=== PATIENT | female | born 1960 ===

== ENCOUNTER 2023-09-25 17:41 | Emergency (ER) | payer BC, SELFPAY ==
[2023-09-25 18:24] VITALS: BP 130/75; PULSE 73; RESP 16; TEMP 36.4; O2SAT 98; BMI 24.8
--- NOTE | 2023-09-25 19:50 | PC.NURSE ---
a&ox3, vss and up to date. pt comes in d/t bilateral eye swelling. sent by urgent care. erythema/swelling noted to bilateral eyes. left side appears worse - travels to outside of left side of nose. partially scabbed pimples noted to left eye/nose. pt denies trauma/any allergic reaction. denies fever/chills/tenderness. slightly warm to touch. pt denies rash on body elsewhere. denies respiratory sx. no sob/wob noted. respirations even and unlabored. family bedside. call perez placed within reach.
[2023-09-25] MEDS: Tetracaine HCl/PF 0.5% Oph Sol 4 ML DROPS 1 DROP EYE-LEFT (20:04)
[2023-09-25] MEDS: Fluorescein Sodium STRIP 1 STRIP EYE-LEFT (20:04)
--- NOTE | 2023-09-25 20:04 | PC.NURSE ---
medication scanned/placed bedside on cart for provider to use.
--- NOTE | 2023-09-25 20:25 | ED.EYEPROB ---
HPI - Eye Problem General Chief complaint: Eye Problems Stated complaint: left eye redened and swollen Time Seen by Provider: 09/25/23 19:52 Source: patient, RN notes reviewed and old records reviewed Mode of arrival: ambulatory History of Present Illness HPI Narrative: 63-year-old female with no significant past medical history presenting to the ED complaining of erythematous, swollen, weeping rash to left eye/left side of face x3-4 days. Reports initially noted lesion to corner of left eye and progressed to left face/nose. Patient was seen in [facility] and sent to the ED for possible zoster ophthalmicus. Patient denies wearing glasses or contacts. Denies vision change/loss, blurry vision/double vision, fever/chills, pain/burning, nausea/vomiting. Admits had chickenpox as a child. Denies new medications/exposures MD chief complaint: eye redness Related Data Previous Rx's Medication Instructions Recorded prednisone 20 mg tablet 40 mg (2 x 20 mg) PO DAILY 4 days 09/25/23 #8 tabs valacyclovir 1 gram tablet 1,000 mg PO TID 7 days #21 tabs 09/25/23 (Valtrex) Allergies Allergy/AdvReac Type Severity Reaction Status Date / Time No Known Allergies Allergy Verified 09/25/23 18:24 Review of Systems Review of Systems: Constitutional: No Fever, No Chills, No Fatigue, No Malaise ENT/Mouth: No Ear Pain, No Nasal Congestion, No sore throat, No Rhinorrhea, No Swallowing Difficulty Eyes: No Eye Pain, + Swelling, + Redness, No Foreign Body, No Discharge, No Vision Changes Cardiovascular: No Chest Pain, No SOB Respiratory: No Cough, No Sputum, No Dyspnea Gastrointestinal: No Nausea, No Vomiting, No Diarrhea, No Constipation, No Abdominal pain Musculoskeletal: No joint pain, No Myalgias, No Joint Swelling Skin: No Skin Lesions, + rash Neuro: No Weakness, No Headache Yes all other systems are reviewed and are negative Constitutional: Constitutional: Reports as per HPI Neurologic: Denies Abnormal speech present PMFSH Past Medical History Attestation statement: The following information was validated with the patient. Source: old records reviewed Social History Smoked in Last 30 Days: No Use of substances other than those prescribed or required for medical reasons: No Advance Directives: No Advance Directives Information Provided: No Patient : No Physical Exam Vital Signs: Vital Signs: Last Vital Signs Temp 97.6 F 09/25/23 18:24 Pulse 73 09/25/23 18:24 Resp 16 09/25/23 18:24 BP 130/75 09/25/23 18:24 Pulse Ox 98 09/25/23 18:24 O2 Del Method Room Air 09/25/23 18:24 BMI result Body Mass Index 24.8 Const: General: cooperative, healthy appearing, no acute distress, alert and awake Orientation/consciousness: patient oriented x3 Limitations: no limitations HEENT: Head: Yes normal to inspection and Yes atraumatic Ears: hearing grossly normal bilaterally General nose exam: Normal external nose present Mouth: Normal oral and palatal mucosa present Throat: Yes posterior oropharynx normal, Yes uvula midline, No peritonsillar mass and No uvular edema Eyes: Other: VA: Right 20/40, Left 20/70, bilateral 20/40 General: appearance normal, both eyes and all related structures Conjunctivae: conjunctival abnormal left conjunctival injection Corneas: fluorescein used (Without uptake. No dendritic lesions. No ulceration or abrasion) Pupils: Equal, round and reactive pupils present EOM: EOMs intact bilaterally and no movement deficit Direct Ophthalmoscopy: no photophobia Neck: Neck: Yes normal visual inspection and Yes no meningeal signs Resp: Effort & Inspection: normal respiratory effort and no respiratory distress Cardio: Rate: regular rate Skin: Other: + erythema/swelling and puffiness noted to left face with crusted over lesion to left lower eyelid and left nasal labial fold. Left nasal labial fold with vesicle/pustule. No ear/TM involvement. manager architecture intact Wounds: no wounds Neuro: General: patient oriented x3, tone normal, moves all extremities, no meningeal signs and CN's II-XI intact bilaterally Cranial nerves: Yes CN's II-XII intact bilaterally and Yes Equal, round and reactive pupils present Cognition (Neuro): normal cognition Speech: No Abnormal speech present Gait exam (Neuro): Normal gait present Extrem: General: Yes normal to inspection Course Course Course Narrative: Results discussed with patient including worrisome signs and symptoms and strict return precautions, and when to return to the emergency department. They verbalized understanding and feel safe for discharge at this time. Medications Administered Discontinued Medications Generic Name Dose Route Start Last Admin Trade Name Usman PRN Reason Stop Dose Admin Fluorescein Sodium 1 strip 09/25/23 19:56 09/25/23 20:04 Fluorescein Sodium Strip EYE-LEFT 09/25/23 19:57 1 strip ONCE ONE Administration Tetracaine HCl 1 drop 09/25/23 19:56 09/25/23 20:04 Tetracaine Hcl/Pf 0.5% Oph Naty 4 Ml Drops EYE-LEFT 09/25/23 19:57 1 drop ONCE ONE Administration Medical Decision Making Medical Decision Making MDM Narrative: 63-year-old female with no significant past medical history presenting to the ED complaining of erythematous, swollen, weeping rash to left eye/left side of face x3-4 days. On exam vital signs stable, NAD, nontoxic appearing, physical exam as noted above with left-sided facial rash with crusting/vesicle/pustule and left lower eyelid involvement. Fluorescein staining without uptake, no dendritic lesions. Concern for zoster ophthalmicus vs ?Contact dermatitis vs impetigo. Lower suspicion for [place] Paulino syndrome. No evidence of anaphylaxis, preseptal/septal cellulitis. Case discussed with ED attending Dr. Louise who also evaluated patient and is in agreement with plan Discussed with patient and daughter at length importance of close ophthalmology follow-up Plan: Viral culture, p.o. Valtrex/prednisone, empirically treat for zoster, Fluorescein staining Please refer to course for remaining clinical decision making, interpretation of labs/imaging results, and discussions with consultants and/or family members. Differential Diagnosis Differential Diagnoses: The differential diagnosis associated with the presentation includes As above Admission/Observation Consideration of admission/observation: Escalation of care including admission/observation considered Lab Data [facility] Lab Attestation statement: I reviewed the patient's lab results. External Record Review External record reviewed: Inpatient record, Office record, Outpatient record, Prior outpatient labs, Prior outpatient radiology, Primary care record and Outside ED record Tests considered The following testing was considered but not selected: As above Prescription Management I considered prescription management with: Antiviral and Antibiotic Discharge Plan Discharge Clinical Impression: Herpes zoster ophthalmicus of left eye Patient Disposition: Home, Self-Care Instructions: Shingles (ED) Additional Instructions: We suspect you may have shingles, shingles involving the eye can be very dangerous and V/Q go blind YOU NEED TO FOLLOW-UP WITH AN CRYPTOGRAPHIC TECHNICIAN, CALL TOMORROW TO MAKE AN APPOINTMENT Valtrex as an antiviral medication, prednisone is steroid, please take as prescribed Recent a viral culture, if results are positive we will contact you If he developed vision loss/change, nausea/vomiting, unremitting pain or fever return to the ED Prescriptions: New valacyclovir [Valtrex] 1 gram tablet 1,000 mg PO TID 7 Days Qty: 21 0RF prednisone 20 mg tablet 40 mg PO DAILY 4 Days Qty: 8 0RF Referrals: Freda Can MD [Physician] - Stephanie Childers OD [Physician] - Brenna Kaplan MD [Physician] - Tanmay Benavides MD [Physician] - Meghan CORTES JR [Physician] - Donald Becker [Physician] - 1 day Stand Alone Forms: Work/School Release
--- NOTE | 2023-09-25 20:28 | PC.NURSE ---
labs obtained and sent to lab by [facility].
--- NOTE | 2023-09-25 20:36 | PC.NURSE ---
visual acuity testing being performed by [facility].
[2023-09-25] MEDS: predniSONE 20 MG TABLET 40 MG PO (20:45)
[2023-09-25] MEDS: valACYclovir HCL 1,000 MG TABLET 1000 MG PO (20:45)
--- NOTE | 2023-09-25 20:47 | PC.NURSE ---
medication administered per provider order. d/c paperwork provided.
== END 2023-09-25 20:47 | disposition home or self-care (01) ==
PROVIDERS: Physician Assistant; Emergency Provider Internal Medicine
DX: B02.8 Zoster with other complications (principal); H57.12 Ocular pain, left eye; R21 Rash and other nonspecific skin eruption
CPT/HCPCS: 36415; 87255; 99283; 99284

== ENCOUNTER 2024-01-09 16:10 | Emergency (ER) | payer BC, SELFPAY ==
[2024-01-09 16:24] VITALS: BP 149/69; PULSE 99; RESP 16; TEMP 37; O2SAT 98; BMI 23.4
--- NOTE | 2024-01-09 16:31 | ED_ITS ---
HPI - General Adult General Chief complaint: Recheck/Abnormal Lab/Rx Stated complaint: abn labs diabetic Time Seen by Provider: 01/09/24 21:06 Source: patient and family Mode of arrival: ambulatory History of Present Illness HPI narrative: 63-year-old female with known history of diabetes and only recently got restarted on medication, she began metformin yesterday and has had 3 doses, she had repeat lab work today and since her blood sugar was very high her primary care doctor sent her into the hospital for closer evaluation. Patient denies any nausea, vomiting, fever, chills, shortness of breath or urinary symptoms. Related Data Previous Rx's Medication Instructions Recorded prednisone 20 mg tablet 40 mg (2 x 20 mg) PO DAILY 4 days 09/25/23 #8 tabs valacyclovir 1 gram tablet 1,000 mg PO TID 7 days #21 tabs 09/25/23 (Valtrex) Allergies Allergy/AdvReac Type Severity Reaction Status Date / Time No Known Allergies Allergy Verified 09/25/23 18:24 Review of Systems 2 Review of Systems: Pertinent positives and negatives as stated in HPI [facility] Past Medical History Source: nursing notes reviewed Social History Social History Advance Directives: No Advance Directives Information Provided: No Physical Exam ED Vital Signs: Vital Signs - 24 hr 01/09/24 16:24 Temperature 98.6 F Pulse Rate 99 Respiratory Rate 16 Blood Pressure 149/69 H Pulse Oximetry 98 Oxygen Delivery Method Room Air BMI result Body Mass Index 23.4 VITAL SIGNS: Reviewed. GENERAL: Well developed, well nourished, in no acute distress. HEAD: Normocephalic/atraumatic EYES: PERRLA, EOMI EARS: Ext canals without abnormality NOSE: Nares patent bilateral OROPHARYNX: no oral lesions noted, posterior pharynx clear NECK: Supple, no adenopathy LUNGS: Normal breath sounds. No adventitious sounds or accessory muscle use. SpO2<98> CARDIOVASCULAR: Regular rate and rhythm without noted murmurs ABDOMEN: Soft, non-tender, non-distended with bowel sounds. MUSCULOSKELETAL: No tenderness, deformities, or effusions noted on gross inspection. EXTREMITIES: No cyanosis, clubbing or edema. SKIN: Inspection of the skin reveals no rashes NEUROLOGIC: Alert and oriented x 4. Strength and sensation to light touch were grossly intact x 4. Course Course Course Narrative: RME: 63-year-old female sent from primary care provider due to hemoglobin A1c over 14. Patient states history of diabetes on metformin. Patient does states increased thirst and urinary frequency. Labs ordered. 18:13; Charge nurse made aware for patient to be brought to the ED due to gucose of 586 Medications Administered Discontinued Medications Generic Name Dose Route Start Last Admin Trade Name Freq PRN Reason Stop Dose Admin Insulin Human Lispro 3 unit 01/09/24 21:29 01/09/24 21:46 Insulin Lispro 100 Unit/Ml 3 Ml Vial SUBCUT 01/09/24 21:30 3 unit ONCE ONE Administration Medical Decision Making Medical Decision Making MDM Narrative: 63-year-old female with history and clinical presentation, DDX: Hyperglycemia and will rule out whether or not associated with any DKA or HHS or underlying illness. I reviewed all investigations and hematologic indices are negative for infectious leukocytosis and suspect reactive as patient has no constitutional symptoms and is otherwise afebrile. Chemistry indices do not demonstrate an KYARA and there is a pseudohyponatremia that is related to patient's random glucose of 586 which on repeat evaluation is noted be 468. Patient will be treated with 3 units subcutaneous lispro as she is considered to be naive at this time and does not have a current glucometer to check her sugar prior to going to bed. Electrolyte without derangements there is no evidence DKA or HHS. Beta hydroxybutyrate-0.26. I discussed all results and findings with the patient at bedside and encouraged her to continue to be compliant with recently prescribed medications and it will take some time and that she will need to use dietary changes as well to further control her sugar levels. Differential Diagnosis Differential Diagnoses: The differential diagnosis associated with the presentation includes Please see the discussion above Admission/Observation Consideration of admission/observation: Escalation of care including admission/observation considered Please see the discussion above Lab Data MDM Lab Attestation statement: I reviewed the patient's lab results. Please see the discussion above 01/09/24 18:13 01/09/24 18:13 Labs: Lab Results 01/09/24 01/09/24 Range/Units 18:13 21:12 WBC 12.0 H (4.8-10.8) X10*3/uL RBC 4.42 (4.20-5.50) X10*6/uL Hgb 13.3 (12.0-16.0) g/dl Hct 38.7 (37.0-47.0) % MCV 87.6 (80.0-98.0) fL MCH 30.1 (27.0-33.0) pg MCHC 34.4 (31.0-35.0) g/dl RDW 11.7 (11.0-16.0) % Plt Count 368 (160-400) X10*3/uL MPV 9.0 L (9.4-12.3) fL Immature Gran % (Auto) 0.3 (0.0-0.4) % Neut % (Auto) 67.5 (45-73) % Lymph % (Auto) 25.8 (20-40) % [place] % (Auto) 5.3 (2-11) % Eos % (Auto) 0.4 (0-4) % Baso % (Auto) 0.7 (0-2) % Lymph # (Auto) 3.1 (1.2-4.9) X10*3/uL [place] # (Auto) 0.6 (0.1-1.2) X10*3/uL Eos # (Auto) 0.1 (0.0-0.4) X10*3/uL Baso # (Auto) 0.1 (0.0-0.2) X10*3/uL Abs Immat Gran (auto) 0.04 H (0.00-0.03) X10*3/uL Absolute Neuts (auto) 8.1 (2.0-8.3) x10*3/uL Absolute Nucleated RBC 0.000 (0.0-0.012) X10*3/uL Nucleated RBC % (auto) 0.0 (0.0-0.2) /100WBC Sodium 133 L (135-145) mmol/L Potassium 4.9 (3.3-5.1) mmol/L Chloride 95 L (96-108) mmol/L Carbon Dioxide 28 (22-29) mmol/L Anion Gap 15 (12-20) BUN 18 H (9-16) mg/dL Creatinine 1.22 (0.5-1.4) mg/dL Estim Creat Clear Calc 39.5 Estimated GFR 45 POC Glucose 468 H* (60-115) mg/dL Random Glucose 586 H* (60-115) mg/dL Calcium 11.1 H (8.4-10.2) mg/dL Total Bilirubin 0.3 (0.0-1.0) mg/dL AST 20 (5-31) U/L ALT 14 (0-31) U/L Alkaline Phosphatase 155 H (39-117) U/L Total Protein 8.1 H (6.5-8.0) g/dL Albumin 3.9 (3.5-5.0) g/dL Beta-Hydroxybutyrate 0.26 (0.02-0.27) mmol/L Chronic Conditions Patient?s care impacted by: Diabetes Discharge Plan Discharge Clinical Impression: Hyperglycemia due to diabetes mellitus, Pseudohyponatremia Patient Disposition: Home, Self-Care Instructions: Basic Carbohydrate Counting (DC), Diabetic Hyperglycemia (ED) Additional Instructions: 1. Resume all home medications as prescribed to include the new ones that you have not yet started. 2. Please review the dietary guidelines to help you further control your sugar levels. 3. Please follow-up with your primary care doctor. Return to the ER for any worsening symptoms. Prescriptions: No Action valacyclovir [Valtrex] 1 gram tablet 1,000 mg PO TID 7 Days Qty: 21 0RF prednisone 20 mg tablet 40 mg PO DAILY 4 Days Qty: 8 0RF Interventions: ED Discharge Assessment Last Done: 01/09/24 21:47 Discharge Date/Time: 01/09/24 21:49
[2024-01-09 18:18] LABS: MANUAL DIFF FLAG NO
[2024-01-09 18:29] LABS: Basophils Absolute Auto 0.1 X10*3/uL (0.0-0.2); Basophils Percent Auto 0.7 % (0-2); Eosinophils Absolute Auto 0.1 X10*3/uL (0.0-0.4); Eosinophils Percent Auto 0.4 % (0-4); Hematocrit 38.7 % (37.0-47.0); Hemoglobin 13.3 g/dl (12.0-16.0); Imm Gran Abs Auto 0.04 X10*3/uL (0.00-0.03); Imm Gran Pct Auto 0.3 % (0.0-0.4); Lymphocytes Absolute Auto 3.1 X10*3/uL (1.2-4.9); Lymphocytes Percent Auto 25.8 % (20-40); Mean Corpuscular HGB Conc 34.4 g/dl (31.0-35.0); Mean Corpuscular Hemoglobin 30.1 pg (27.0-33.0); Mean Corpuscular Volume 87.6 fL (80.0-98.0); Monocytes Absolute Auto 0.6 X10*3/uL (0.1-1.2); Monocytes Percent Auto 5.3 % (2-11); Neutrophils Absolute Auto 8.1 x10*3/uL (2.0-8.3); Neutrophils Percent Auto 67.5 % (45-73); Platelet Count 368 X10*3/uL (160-400); Red Blood Count 4.42 X10*6/uL (4.20-5.50); Red Cell Distribution Width 11.7 % (11.0-16.0)
[2024-01-09 18:45] LABS: Beta-Hydroxybutyrate 0.26 mmol/L (0.02-0.27)
[2024-01-09 18:48] LABS: Alanine Aminotransferase 14 U/L (0-31); Albumin Level 3.9 g/dL (3.5-5.0); Alkaline Phosphatase 155 U/L (39-117); Anion Gap 15 (12-20); Aspartate Amino Transferase 20 U/L (5-31); Bilirubin Total 0.3 mg/dL (0.0-1.0); Blood Urea Nitrogen 18 mg/dL (9-16); Calcium 11.1 mg/dL (8.4-10.2); Carbon Dioxide 28 mmol/L (22-29); Chloride 95 mmol/L (96-108); Creatinine Clr Calc Pharmacy 39.5; Estimated Glomerular Filt Rate 45; Glucose Random 586 mg/dL (60-115); Potassium 4.9 mmol/L (3.3-5.1); Sodium 133 mmol/L (135-145); Total Protein 8.1 g/dL (6.5-8.0)
[2024-01-09 21:17] LABS: Glucose, Whole Blood 468 mg/dL (60-115)
[2024-01-09] MEDS: Insulin Lispro 100 UNIT/ML 3 ML VIAL SUBCUT (21:46)
[2024-01-10 05:24] LABS: Hemoglobin A1c % > 14.0 % (<6.0)
== END 2024-01-09 21:49 | disposition home or self-care (01) ==
PROVIDERS: Physician Assistant; Emergency Provider Student in an Organized Health Care Education/Training Program
DX: E11.65 Type 2 diabetes mellitus with hyperglycemia (principal); Z79.84 Long term (current) use of oral hypoglycemic drugs
CPT/HCPCS: 36415; 80053; 82010; 82947; 83036; 85025; 99282; 99283

== ENCOUNTER 2024-03-25 10:20 | Inpatient (IN) | payer BC, SELFPAY ==
--- NOTE | ~2024-03-25 | CT_ITS ---
EXAMINATION: CT abdomen pelvis w IV con CLINICAL INFORMATION: Right-sided abdominal pain COMPARISON: No prior CT available for comparison. TECHNIQUE: Multidetector volumetric imaging was performed from the superior aspect of the liver through the pubic symphysis 85 mL Omnipaque 350 injected Sagittal and coronal reformatted images were obtained on the technologist's workstation. This CT examination was performed using dose optimization techniques as appropriate, variously including the following: *Automated exposure control *Adjustment of mA and/or kV according to patient size (this includes techniques or standardized protocols for targeted exams where dose is matched to indication/reason for exam; i.e. extremities or head) *Use of iterative reconstruction technique DLP: 385 mGy-cm FINDINGS: LOWER THORAX: Included lung bases are clear. HEPATOBILIARY: No focal hepatic lesions. No biliary ductal dilatation. GALLBLADDER: Gallbladder is markedly distended, there is enhancement and thickening of gallbladder wall and probably gallstones, raising possibility for possible gallbladder disease including cholecystitis and would require correlation with follow-up ultrasound or HIDA scan. SPLEEN: Spleen is normal in size. PANCREAS: No focal mass or ductal dilatation. STOMACH AND GASTROINTESTINAL TRACT: Stomach is grossly unremarkable. There is no bowel distention or thickening. No CT evidence of appendicitis. There is diverticulosis without evidence of diverticulitis. ADRENALS: No adrenal nodules. KIDNEYS/URETERS: There are wedge shape hypodensities in the kidneys bilaterally, at least 2 of which on the right side and 2 on the left, this is concerning for renal small segmental infarcts or scars versus less likely infection with septic emboli.. No kidney stone or hydronephrosis. URINARY BLADDER: Partially decompressed. PELVIC VISCERA: Unremarkable PERITONEUM: No free air or fluid. LYMPH NODES: No lymphadenopathy. VASCULAR:Abdominal aorta normal in size, no aneurysm found. BONES, ABDOMINAL WALL AND SOFT TISSUES: Age-appropriate changes of the spine and skeletal system, no destructive osteolytic or osteosclerotic bone lesion found CT/CT abdomen pelvis w IV con IMPRESSION: 1. Gallbladder is markedly distended, there is enhancement and thickening of gallbladder wall and probably gallstones, raising possibility for possible gallbladder disease including acute cholecystitis. Attention to correlation with follow-up ultrasound or HIDA scan recommended. 2. There are wedge-shaped hypodensities in the kidneys bilaterally at least 2 of which on the right side and 2 on the left, this is concerning for renal segmental infarcts versus scars versus less likely infection or septic emboli. No kidney stone or hydronephrosis. 3. Other noncritical findings as above. (Referring physician staff is being called, by physician staff assistance, to be alerted of the above critical findings and recommendations.) 03/25/2024 3:07 PM WILLIAMS
--- NOTE | 2024-03-25 11:02 | ED_ITS ---
HPI - General Adult General Chief complaint: Abdominal Pain Stated complaint: Abd pain R side Time Seen by Provider: 03/25/24 12:24 Source: patient Mode of arrival: ambulatory Limitations: no limitations History of Present Illness ED Provider: Brandy Cuevas PA-C HPI narrative: Patient is a 64 year old assigned female at with a history of DM and recent colonoscopy presenting to the emergency department today with abdominal pain, nausea, and vomiting. Patient states that she had a colonoscopy on Tuesday03/23/2024, at [facility], and has been having upper abdominal pain, nausea, and vomiting since then. Patient denies any dizziness, lightheadedness, fever, chills, blurry vision, double vision, loss of vision, chest pain, difficulty breathing, shortness of breath, back pain, night sweats, pain with urination, increased urinary frequency, increased urinary urgency, blood in her urine or stool, syncope or a near syncopal episode, recent trauma or falls, bowel incontinence, bladder incontinence, bowel retention, bladder retention, or any other complaints at this time. Onset (ago): day(s) (2) Location: abdomen Severity: mild Severity scale (1-10): 4 Relieving factors: none Exacerbating factors: none Associated symptoms: nausea/vomiting Treatments prior to arrival: none Related Data Previous Rx's ?Medication ?Instructions ?Recorded prednisone 20 mg tablet 40 mg (2 x 20 mg) PO DAILY 4 days 09/25/23 #8 tabs valacyclovir 1 gram tablet 1,000 mg PO TID 7 days #21 tabs 09/25/23 (Valtrex) Allergies Allergy/AdvReac Type Severity Reaction Status Date / Time No Known Allergies Allergy Verified 03/25/24 11:05 Review of Systems 2 Constitutional: Constitutional: Reports no additional constitutional complaints, Denies chills, Denies fever(s) and Denies night sweats Eyes: Eyes: Reports no additional eye complaints, Denies blurry vision, Denies change in vision, Denies diplopia, Denies eye discharge, Denies loss of vision and Denies eye pain ENT: Denies dizziness Cardiovascular: Cardiovascular: Reports no additional cardiovascular complaints, Denies chest pain, Denies lightheadedness, Denies Loss of Consciousness and Denies dyspnea Respiratory: Respiratory: Reports no additional respiratory complaints and Denies dyspnea Gastrointestinal: Gastrointestinal: Reports no additional gastrointestinal complaints, Reports abdominal pain, Denies melena, Denies hematochezia, Denies change in bowel habits, Denies change in stool character, Reports nausea and Reports vomiting Genitourinary: Genitourinary: Denies hematuria, Denies urinary frequency, Denies dysuria, Denies urinary incontinence, Denies urinary hesitancy and Denies urinary urgency Musculoskeletal: Musculoskeletal: Reports no additional musculoskeletal complaints, Denies numbness and Denies tingling Neurologic: Denies dizziness, Denies loss of vision, Denies numbness and Denies tingling Psychiatric: Psychiatric: Reports no additional psychiatric complaints Endocrine: Endocrine: Reports no additional endocrine complaints Hematologic/Lymphatic: Hematologic/Lymphatic: Reports no additional hematologic/lymphatic complaints Allergic/Immunologic: Allergic/Immunologic: Reports no additional allergic/immunologic complaints [facility] Past Medical History Attestation statement: The following information was validated with the patient. Source: old records reviewed and nursing notes reviewed Social History Social History Smoked in Last 30 Days: No Use of substances other than those prescribed or required for medical reasons: No Advance Directives: No Advance Directives Information Provided: Yes Do you have a plan to hurt others: No Plan Physical Exam ED Vital Signs: Vital Signs - 24 hr 03/25/24 11:03 03/25/24 12:54 Temperature 98.1 F 98.6 F Pulse Rate 74 88 Respiratory Rate 16 14 Blood Pressure 125/66 142/67 H Pulse Oximetry 98 95 Oxygen Delivery Method Room Air Room Air BMI result Body Mass Index 23.9 Const General: cooperative, no acute distress, alert and awake Nutritional Appearance: well nourished Orientation/consciousness: patient oriented x3 Limitations: no limitations [facility] Head: Yes normal to inspection and Yes atraumatic Ears: hearing grossly normal bilaterally and external ears normal General nose exam: Normal external nose present, no nasal discharge noted and no epistaxis Face and sinus: Yes normal facial exam, No abrasion and No laceration Mouth: Normal oral and palatal mucosa present, no drooling and no muffled voice Eyes General: appearance normal, both eyes and all related structures Periorbital: periorbital findings normal Eyelids: Yes eyelids normal Conjunctivae: conjunctivae normal Pupils: Equal, round and reactive pupils present EOM: EOMs intact bilaterally Neck Neck: Yes normal visual inspection, Yes full ROM and Yes no lymphadenopathy Chest Chest palpation & inspection: normal inspection of the chest Resp Effort & Inspection: normal respiratory effort and able to speak in complete sentences GI Inspection: Yes normal to inspection Palpation (GI): Soft to palpation, not firm, Tenderness to palpation present (GI), no guarding and not rigid Neuro General: patient oriented x3 and moves all extremities Cranial nerves: Yes Equal, round and reactive pupils present Cognition (Neuro): normal cognition Motor exam (neuro): 5/5 motor strength present throughout Sensory Exam: Normal double simultaneous stimulation for sensation Coordination: [id number] test normal Extrem General: Yes normal to inspection, Yes full ROM and Yes capillary refill normal Psych Appearance: grossly normal Mental Status: mental status grossly normal Affect: normal affect Attitude: cooperative Thought process: Normal thought process present Thought content: Normal thought content present Insight: Good insight present (Psych) Course Course Course Narrative: RME- 64 year old female presents for evaluation of abdominal pain. She reports having a colonoscopy done 2 days ago at [facility]. She reports associated vomiting. Last bowel movement was yesterday. Plan for labs, CT abdomen and pelvis Medications Administered Discontinued Medications Generic Name Dose Route Start Last Admin Trade Name Freq PRN Reason Stop Dose Admin Ceftriaxone Sodium 1 gm/ 50 mls @ 100 mls/hr 03/25/24 12:24 03/25/24 13:00 Sodium Chloride IV 03/25/24 12:53 Infused ONCE ONE Infusion Sodium Chloride 1,000 mls @ 999 mls/hr 03/25/24 12:30 03/25/24 12:52 Ns IV 03/25/24 13:30 999 mls/hr .Q1H1M GULSHAN Administration Iohexol 85 ml 03/25/24 13:48 03/25/24 13:48 Iohexol 350 Mg/Ml 75 Ml Infus..Btl IV 03/25/24 13:49 85 ml ONCE ONE Administration Morphine Sulfate 4 mg 03/25/24 12:28 03/25/24 12:48 Morphine Sulfate 4 Mg/Ml Cartridge IVPUSH 03/25/24 12:29 4 mg ONCE ONE Administration Protocol Ondansetron HCl 4 mg 03/25/24 12:24 03/25/24 12:48 Ondansetron Hcl 4 Mg/2 Ml Vial IVPUSH 03/25/24 12:25 4 mg ONCE ONE Administration Medical Decision Making Medical Decision Making MDM Narrative: Patient is a 64 year old assigned female at with a history of DM presenting to the emergency department today with abdominal pain, nausea, and vomiting. Patient's physical exam showed abdominal pain to palpation but was otherwise unremarkable. Patient's blood work showed an elevated WBC count of 22.5, an elevated glucose of 334, a lactic acid of 2.4, and an ALT of 42. Patient's urine showed a possible infection. Patient's abdomen/pelvis CT showed a markedly distended gallbladder with enhancement and thickening of the gallbladder wall with probable gallstones, consistent with cholecystitis. Incidental finding of wedge-shaped hypodensities in the kidneys bilaterally at least 2 of which are on the right side and 2 on the left concerning for renal segmental infarcts vs. scars. I spoke with Dr. Ornelas, the vascular surgeon international first officer about the potential renal infarcts who recommended outpatient follow up. I spoke to the general surgeon about the cholecystitis who recommended admission under his service. Patient's clinical presentation is not consistent with sepsis (@1600). I explained my physical exam findings as well as all test results to the patient. I answered all questions asked by the patient. Patient verbalized agreement and understanding with this treatment plan and admission. Differential Diagnosis Differential Diagnoses: The differential diagnosis associated with the presentation includes Renal infarct Cholecystitis Abdominal pain UTI Admission/Observation Consideration of admission/observation: Escalation of care including admission/observation considered Patient admitted to the surgical service. Consult Healthcare Provider Management of the patient was discussed with: Finger Lift Operator (spoke to the vascular and surgical teams as noted in the MDM Rationale portion of this note.) Lab Data [facility] Lab Attestation statement: I reviewed the patient's lab results. My interpretation of these results are in the MDM Rationale portion of this note. 03/25/24 11:36 03/25/24 11:36 Labs: Lab Results 03/25/24 03/25/24 03/25/24 Range/Units 11:36 11:40 14:59 WBC 22.5 H (4.8-10.8) X10*3/uL RBC 4.36 (4.20-5.50) X10*6/uL Hgb 13.5 (12.0-16.0) g/dl Hct 39.0 (37.0-47.0) % MCV 89.4 (80.0-98.0) fL MCH 34.6 H (27.0-33.0) pg MCHC 34.6 (31.0-35.0) g/dl RDW 13.3 (11.0-16.0) % Plt Count 244 D (160-400) X10*3/uL MPV 9.2 L (9.4-12.3) fL Immature Gran % (Auto) 0.8 H (0.0-0.4) % Neut % (Auto) 90.3 H (45-73) % Lymph % (Auto) 4.7 L (20-40) % [place] % (Auto) 4.0 (2-11) % Eos % (Auto) 0.0 (0-4) % Baso % (Auto) 0.2 (0-2) % Lymph # (Auto) 1.1 L (1.2-4.9) X10*3/uL [place] # (Auto) 0.9 (0.1-1.2) X10*3/uL Eos # (Auto) 0.0 (0.0-0.4) X10*3/uL Baso # (Auto) 0.1 (0.0-0.2) X10*3/uL Abs Immat Gran (auto) 0.19 H (0.00-0.03) X10*3/uL Absolute Neuts (auto) 20.3 H (2.0-8.3) x10*3/uL Absolute Nucleated RBC 0.000 (0.0-0.012) X10*3/uL Nucleated RBC % (auto) 0.0 (0.0-0.2) /100WBC Smear Tech's Comments VERIFIED PT 14.6 H (11.1-13.3) SEC INR 1.2 H (0.9-1.1) Sodium 143 (135-145) mmol/L Potassium 4.0 (3.3-5.1) mmol/L Chloride 103 (96-108) mmol/L Carbon Dioxide 27 (22-29) mmol/L Anion Gap 17 (12-20) BUN 16 (9-16) mg/dL Creatinine 0.95 (0.5-1.4) mg/dL Estim Creat Clear Calc 50.1 Estimated GFR 59 Random Glucose 334 H (60-115) mg/dL Lactic Acid 2.4 H* (0.5-2.0) mmol/L Lactic Acid F/U @ 2Hr 2.1 H* (0.5-2.0) mmol/L Calcium 10.7 H (8.4-10.2) mg/dL Total Bilirubin 0.6 (0.0-1.0) mg/dL AST 25 (5-31) U/L ALT 42 H (0-31) U/L Alkaline Phosphatase 80 (39-117) U/L Total Protein 8.3 H (6.5-8.0) g/dL Albumin 4.3 (3.5-5.0) g/dL Lipase 6 L (8-78) U/L Urine Color Yellow Urine Appearance Cloudy Urine pH 6.0 (5.0-9.0) Ur Specific [place] >= 1.030 H (1.005-1.025) Urine Protein 100 (2+) H (Neg-Trace) mg/dL Urine Glucose (UA) >=1000 H (Negative) mg/dL Urine Ketones Negative (Negative) mg/dL Urine Blood Trace H (Negative) Urine Nitrite Negative (Negative) Ur Leukocyte Esterase Small (1+) H (Negative) Urine RBC 0-2 (0-2) /HPF Urine WBC >50 H (0-5) /HPF Ur Squamous Epith Cells 6-10 (0-2) /HPF Urine Bacteria 4+ (None Seen) Hyaline Casts 0-2 (0-2) /LPF Independent Interpretation I performed an independent interpretation of an: EKG and CT Scan Interpretation: My interpretation is in agreement with the radiologist's impression of this imaging study. - EXAMINATION: CT abdomen pelvis w IV con CLINICAL INFORMATION: Right-sided abdominal pain COMPARISON: No prior CT available for comparison. TECHNIQUE: Multidetector volumetric imaging was performed from the superior aspect of the liver through the pubic symphysis 85 mL Omnipaque 350 injected Sagittal and coronal reformatted images were obtained on the technologist's workstation. This CT examination was performed using dose optimization techniques as appropriate, variously including the following: *Automated exposure control *Adjustment of mA and/or kV according to patient size (this includes techniques or standardized protocols for targeted exams where dose is matched to indication/reason for exam; i.e. extremities or head) *Use of iterative reconstruction technique DLP: 385 mGy-cm FINDINGS: LOWER THORAX: Included lung bases are clear. HEPATOBILIARY: No focal hepatic lesions. No biliary ductal dilatation. GALLBLADDER: Gallbladder is markedly distended, there is enhancement and thickening of gallbladder wall and probably gallstones, raising possibility for possible gallbladder disease including cholecystitis and would require correlation with follow-up ultrasound or HIDA scan. SPLEEN: Spleen is normal in size. PANCREAS: No focal mass or ductal dilatation. STOMACH AND GASTROINTESTINAL TRACT: Stomach is grossly unremarkable. There is no bowel distention or thickening. No CT evidence of appendicitis. There is diverticulosis without evidence of diverticulitis. ADRENALS: No adrenal nodules. KIDNEYS/URETERS: There are wedge shape hypodensities in the kidneys bilaterally, at least 2 of which on the right side and 2 on the left, this is concerning for renal small segmental infarcts or scars versus less likely infection with septic emboli.. No kidney stone or hydronephrosis. URINARY BLADDER: Partially decompressed. PELVIC VISCERA: Unremarkable PERITONEUM: No free air or fluid. LYMPH NODES: No lymphadenopathy. VASCULAR:Abdominal aorta normal in size, no aneurysm found. BONES, ABDOMINAL WALL AND SOFT TISSUES: Age-appropriate changes of the spine and skeletal system, no destructive osteolytic or osteosclerotic bone lesion found CT/CT abdomen pelvis w IV con IMPRESSION: 1. Gallbladder is markedly distended, there is enhancement and thickening of gallbladder wall and probably gallstones, raising possibility for possible gallbladder disease including acute cholecystitis. Attention to correlation with follow-up ultrasound or HIDA scan recommended. 2. There are wedge-shaped hypodensities in the kidneys bilaterally at least 2 of which on the right side and 2 on the left, this is concerning for renal segmental infarcts versus scars versus less likely infection or septic emboli. No kidney stone or hydronephrosis. 3. Other noncritical findings as above. (Referring physician staff is being called, by physician staff assistance, to be alerted of the above critical findings and recommendations.) 03/25/2024 3:07 PM KP Dictated By: Brenden Bernal MD Signed By: Electronically signed by Brenden Bernal MD 03/25/24 1508 - Vent. Rate: 080 BPM Atrial Rate: 080 BPM P-R Int: 118 ms QRS Dur: 070 ms QT Int: 336 ms P-R-T Axes: 069 022 -07 degrees QTc Int: 387 ms Normal sinus rhythm Nonspecific T wave abnormality Abnormal ECG No previous ECGs available DD/ 1123 Radiology Impression Discussion of test interpretation with radiology: I have reviewed the radiologist's reading. Chronic Conditions Patient?s care impacted by: Diabetes Critical Care Time Critical Care Time Critical Care Time: Yes Total Critical Care Time: 124 Attestation: I spent 124 minutes of Critical Care Time with this patient. This does not include time spent on separately reported billable procedures. Discharge Plan Discharge Clinical Impression: Cholecystitis, UTI (urinary tract infection) Patient Disposition: Admitted As Inpatient
[2024-03-25 11:03] VITALS: BP 125/66; PULSE 74; RESP 16; TEMP 36.7; O2SAT 98; BMI 23.9
--- NOTE | 2024-03-25 11:03 | ECG_ITS ---
Test Reason : PAIN Blood Pressure : / mmHG Vent. Rate : 080 BPM Atrial Rate : 080 BPM P-R Int : 118 ms QRS Dur : 070 ms QT Int : 336 ms P-R-T Axes : 069 022 -07 degrees QTc Int : 387 ms Normal sinus rhythm Inferior T wave inversions- consider ischemia Abnormal ECG No previous ECGs available Referred By: Ayan Gonzalez Electronically Signed By:Krishan Echavarria
[2024-03-25 11:48] LABS: Basophils Absolute Auto 0.1 X10*3/uL (0.0-0.2); Basophils Percent Auto 0.2 % (0-2); Hemoglobin 13.5 g/dl (12.0-16.0); Imm Gran Abs Auto 0.19 X10*3/uL (0.00-0.03); Imm Gran Pct Auto 0.8 % (0.0-0.4); Lymphocytes Absolute Auto 1.1 X10*3/uL (1.2-4.9); Lymphocytes Percent Auto 4.7 % (20-40); MANUAL DIFF FLAG SCAN; Mean Corpuscular HGB Conc 34.6 g/dl (31.0-35.0); Mean Corpuscular Volume 89.4 fL (80.0-98.0); Mean Platelet Volume 9.2 fL (9.4-12.3); Monocytes Absolute Auto 0.9 X10*3/uL (0.1-1.2); Neutrophils Absolute Auto 20.3 x10*3/uL (2.0-8.3); Neutrophils Percent Auto 90.3 % (45-73); Platelet Count 244 X10*3/uL (160-400); Red Blood Count 4.36 X10*6/uL (4.20-5.50); Red Cell Distribution Width 13.3 % (11.0-16.0); SCAN SMEAR FLAG 1; White Blood Count 22.5 X10*3/uL (4.8-10.8)
[2024-03-25 11:49] LABS: Mean Corpuscular Hemoglobin 34.6 pg (27.0-33.0)
[2024-03-25 11:49] LABS: Appearance Urine Cloudy; Color Urine Yellow; Glucose Urine UA >=1000 mg/dL (Negative); Leukocyte Esterase Urine Small (1+) (Negative); Nitrite Urine Negative (Negative); Specific Gravity - Urine >= 1.030 (1.005-1.025); UMIC TRIGGER UACC YES; Urine Blood Trace (Negative); Urine Ketones Negative (Negative); Urine Protein 100 (2+) mg/dL (Neg-Trace)
[2024-03-25 11:52] LABS: Bacteria Urine 4+ (None Seen); Hyaline Casts Urine 0-2 /LPF (0-2); RBC Urine 0-2 /HPF (0-2); UACC Culture Trigger YES; WBC Urine >50 /HPF (0-5)
[2024-03-25 11:59] LABS: INTERNATIONAL NORM RATIO 1.2 (0.9-1.1); Prothrombin Time 14.6 SEC (11.1-13.3)
[2024-03-25 12:04] LABS: Lactic Acid 2.4 mmol/L (0.5-2.0)
[2024-03-25 12:05] LABS: Alanine Aminotransferase 42 U/L (0-31); Albumin Level 4.3 g/dL (3.5-5.0); Alkaline Phosphatase 80 U/L (39-117); Anion Gap 17 (12-20); Aspartate Amino Transferase 25 U/L (5-31); Bilirubin Total 0.6 mg/dL (0.0-1.0); Blood Urea Nitrogen 16 mg/dL (9-16); Calcium 10.7 mg/dL (8.4-10.2); Carbon Dioxide 27 mmol/L (22-29); Chloride 103 mmol/L (96-108); Creatinine Clr Calc Pharmacy 50.1; Estimated Glomerular Filt Rate 59; Glucose Random 334 mg/dL (60-115); Lipase 6 U/L (8-78); Sodium 143 mmol/L (135-145); Total Protein 8.3 g/dL (6.5-8.0)
[2024-03-25 12:08] LABS: SLIDE REVIEW VERIFIED
[2024-03-25] MEDS: Morphine Sulfate 4 MG/ML CARTRIDGE IVPUSH ×2 (12:48→16:01)
[2024-03-25] MEDS: ondansetron HCL 4 MG/2 ML VIAL IVPUSH ×2 (12:48→16:01)
[2024-03-25] MEDS: cefTRIAXone sodium 1 GM in 0.9 % Sodium Chloride 50 ML IV ×2 (12:48→16:02)
[2024-03-25] MEDS: 0.9 % Sodium Chloride 1,000 ML 999 ML IV (12:52)
[2024-03-25 12:54] VITALS: BP 142/67; PULSE 88; RESP 14; TEMP 37; O2SAT 95
[2024-03-25 13:45] LABS: Reflex Lactate? Lactic Acid Added
[2024-03-25] MEDS: iohexoL 350 MG/ML 75 ML INFUS..BTL 85 ML IV (13:48)
[2024-03-25 15:19] LABS: ~Lactic Acid-LAB USE ONLY 2.1 mmol/L (0.5-2.0)
[2024-03-25] MEDS: Dextrose 5 % and 0.9 % NaCl 1,000 ML 100 ML IVCONT (16:17)
[2024-03-25] MEDS: 0.9 % Sodium Chloride Flush 3 ML SYRINGE IVFLUSH (16:23)
[2024-03-25 17:03] LABS: Reflex Lactate? 2 Y
[2024-03-25 17:13] VITALS: BP 128/63; PULSE 75; RESP 18; TEMP 36.6; O2SAT 98
--- NOTE | 2024-03-25 17:24 | PHA.MEDREC ---
Pharmacy Consult ? Medication Reconciliation Pharmacy has completed the medication reconciliation. spoke with patient to confirm medications. She reports she stopped taking melatonin because it was not working for her. She confirmed that she uses 18 units of the lantus every night at 8pm. Patient took no medications today. She reports she took the colonoscopy prep on .
[2024-03-25 17:33] LABS: ~Lactic Acid-LAB USE ONLY 1.9 mmol/L (0.5-2.0)
[2024-03-25] MEDS: HYDROmorphone HCl 1 MG/ML SYRINGE 0.5 MG IVPUSH ×2 (18:49→22:50)
[2024-03-25] MEDS: Acetaminophen 325 MG TABLET 650 MG PO (18:50)
[2024-03-25 18:52] LABS: Glucose, Whole Blood 292 mg/dL (60-115)
--- NOTE | 2024-03-25 19:23 | PC.NURSE ---
POC 292, report called to overflow to RN explaining her case and that I had paused her D5 NS infusion due to sugar being high. The RN will get in touch with Dr Harrison and ask for parameters for this patient.
[2024-03-25] MEDS: Lactated Ringers 1,000 ML 100 ML IVCONT (20:15)
[2024-03-25 23:24] VITALS: BP 149/80; PULSE 92; RESP 14; TEMP 36.8; O2SAT 96
[2024-03-26] VITALS (11 sets, daily range): BP systolic 111–139; BP diastolic 56–67; PULSE 72–95; RESP 14–18; TEMP 36.2–36.8; O2SAT 92–99; BMI 25.0
[2024-03-26 00:16] LABS: Glucose, Whole Blood 279 mg/dL (60-115)
[2024-03-26] MEDS: HYDROmorphone HCl 1 MG/ML SYRINGE 0.5 MG IVPUSH ×2 (02:57→07:40)
[2024-03-26] MEDS: Lactated Ringers 1,000 ML 100 ML IVCONT ×2 (06:28→16:34)
--- NOTE | 2024-03-26 06:34 | P.EN_ITS ---
Event Note Date of Service: 03/26/24 Event Note: This is a 64-year-old female with pertinent history of hypertension, insulin- dependent diabetes mellitus who presents to the emergency department for evaluation of abdominal discomfort. Patient admitted to general surgery for management of acute cholecystitis. Hospital medicine team consulted for management of diabetes mellitus Middle-aged female lying in bed in no distress Neck supple, no JVD Regular rate and rhythm, S1-S2 heard Regular breath sounds bilaterally, no wheezing or crackles appreciated Abdomen with tenderness to palpation, no guarding, no rigidity, no rebound tenderness Patient is awake, alert and oriented to self, place, time and person ; no focal motor deficit Psych: Normal mood No pedal edema #. Insulin-dependent diabetes mellitus with hyperglycemia: Initiating basal plus insulin regimen. #. Acute cholecystitis with sepsis: Resuscitated with IV crystalloids. Lactic acid and blood culture obtained. Initiating empiric IV antibiotics. Plan for lap mila today #. Acute lactic acidosis due to sepsis #. ?Acute UTI: Antibiotics as above #. Hypertension: Hold BLOSSOM inhibitor for possible surgery DVT prophylaxis: Mechanical Diet: NPO Thank you for the consult Time Spent With Patient Time: Total time managing care of this patient today ____ minutes.
[2024-03-26 06:42] LABS: Glucose, Whole Blood 309 mg/dL (60-115)
[2024-03-26] MEDS: Insulin Glargine,Hum.rec.anlog 100 UNIT/ML 10 ML VIAL 9 UNIT SUBCUT ×2 (06:49→20:39)
[2024-03-26] MEDS: Insulin Lispro 100 UNIT/ML 3 ML VIAL SUBCUT ×3 (07:08→20:38)
[2024-03-26] MEDS: Atorvastatin Calcium 40 MG TABLET PO (07:40)
[2024-03-26] MEDS: lisinopriL 2.5 MG TABLET PO (07:40)
[2024-03-26] MEDS: 0.9 % Sodium Chloride Flush 3 ML SYRINGE IVFLUSH ×2 (07:49→20:39)
[2024-03-26] MEDS: Piperacillin Sodium/Tazobactam 4.5 GM in 0.9 % Sodium Chloride 100 ML IV ×3 (07:49→20:39)
[2024-03-26 08:02] LABS: Glucose, Whole Blood 254 mg/dL (60-115)
[2024-03-26 08:17] LABS: Hematocrit 36.9 % (37.0-47.0); Hemoglobin 12.4 g/dl (12.0-16.0); Mean Corpuscular HGB Conc 33.6 g/dl (31.0-35.0); Mean Corpuscular Hemoglobin 30.7 pg (27.0-33.0); Mean Corpuscular Volume 91.3 fL (80.0-98.0); Mean Platelet Volume 9.4 fL (9.4-12.3); Platelet Count 199 X10*3/uL (160-400); Red Blood Count 4.04 X10*6/uL (4.20-5.50); Red Cell Distribution Width 13.7 % (11.0-16.0); White Blood Count 18.4 X10*3/uL (4.8-10.8)
[2024-03-26 08:33] LABS: Anion Gap 14 (12-20); Blood Urea Nitrogen 15 mg/dL (9-16); Calcium 9.9 mg/dL (8.4-10.2); Carbon Dioxide 26 mmol/L (22-29); Chloride 107 mmol/L (96-108); Creatinine Clr Calc Pharmacy 69.1; Estimated Glomerular Filt Rate > 60; Glucose Random 287 mg/dL (60-115); Potassium 3.7 mmol/L (3.3-5.1); Sodium 143 mmol/L (135-145)
--- NOTE | 2024-03-26 09:10 | P.HPGS_ITS ---
History of Present Illness History of Present Illness Date of Service: 03/26/24 Chief complaint: Acute GB Narrative: Kiarra Aldana is a 64 year old female here in the ER yesterday afternoon by Dr. Harrison because of abdominal pain. She describes this mostly in the right upper side of the abdomen radiating to the back. She states that she had a colonoscopy last Tuesday morning in the hospital. She says she did well afterwards but later that night, she started to have this right upper quadrant pain. This persisted on Tuesday and she eventually came to the ER yesterday. She also describes some nausea and vomiting. She denies any diarrhea She says that currently, her pain is in right upper quadrant all the way to the side and back. Her CT scan yesterday showed findings suggestive of acute cholecystitis with a distended gallbladder and thickened wall. Her initial lactate was 2.4 but this went down to normal after hydration. Review of Systems Constitutional: Constitutional: Denies chills and Denies fever(s) Cardiovascular: Cardiovascular: Denies chest pain, Denies dyspnea and Denies dyspnea on exertion Respiratory: Respiratory: Denies cough, Denies dyspnea and Denies dyspnea on exertion Gastrointestinal: Gastrointestinal: Denies hematochezia and Denies change in bowel habits Genitourinary: Genitourinary: Denies hematuria Musculoskeletal: Musculoskeletal: Denies back pain and Denies limited range of motion Neurologic: Denies focal weakness and Denies convulsions Psychiatric: Psychiatric: Denies depression and Denies mood swings PMFSH Past Medical History Medical History Hypertension Diabetes mellitus Social History Social History Household Members: Spouse Housing: House Do you presently have visiting nurse or other home services: No Comment: COUNTS CORRECT Patient Tobacco Use Status: Never used Tobacco Smoked in Last 30 Days: No Use of substances other than those prescribed or required for medical reasons: No Currently Displaying Signs/Symptoms of Drug Intoxication Withdrawal: No Have you been hit, kicked, punched, or otherwise hurt by someone within the past year? If so, by whom?: No Do you feel safe in your current relationship?: Yes Is there a partner from a previous relationship who is making you feel unsafe now?: No Are you made to feel afraid or neglected: No Advance Directives: No Advance Directives Information Provided: Yes Do you have a plan to hurt others: No Plan Recently lost weight without trying: Yes Eating poorly because of decreased appetite: No Nutrition Risks: No Nutritional Risk Patient : No : No Poor oral hygiene: No Meds Allergies Allergy/AdvReac Type Severity Reaction Status Date / Time No Known Allergies Allergy Verified 03/25/24 11:05 Active Medications: Current Medications Acetaminophen (Acetaminophen 325 Mg Tablet) 650 mg PO Q6H PRN PRN Reason: Pain, Mild (Pain Scale 1-3) Last Admin: 03/25/24 18:50 Dose: 650 mg Al Hydroxide/Mg Hydroxide (Magnesium Hydrox/Alum Hydrox 30 Ml Oral.Susp) 30 ml PO Q4H PRN PRN Reason: Heartburn/Nausea Atorvastatin Calcium (Atorvastatin Calcium 40 Mg Tablet) 40 mg PO DAILY [facility] Last Admin: 03/26/24 07:40 Dose: 40 mg Glucose (Glucose Gel 15 Gm Gel..Gram.) 15 gm PO Q15M PRN; Protocol PRN Reason: per Hypoglycemia Standing Ord. Hydromorphone HCl (Hydromorphone Hcl 1 Mg/Ml Syringe) 0.5 mg IVPUSH Q4H PRN; Protocol PRN Reason: Pain, Severe (Pain Scale 7-10) Last Admin: 03/26/24 07:40 Dose: 0.5 mg Lactated Ringer's (Lr) 1,000 mls @ 100 mls/hr IVCONT .Q10H [facility] Last Admin: 03/26/24 06:28 Dose: 100 mls/hr Dextrose (D10) 250 mls @ 750 mls/hr IV Q15M PRN; Protocol PRN Reason: per Hypoglycemia Standing Ord. Piperacillin Sod/Tazobactam (Sod 4.5 gm/ Sodium Chloride) 100 mls @ 200 mls/hr IV Q6H [facility] Last Infusion: 03/26/24 08:19 Dose: Infused Insulin Glargine (Insulin Glargine,Hum.Rec.Anlog 100 Unit/Ml 10 Ml Vial) 9 unit SUBCUT BEDTIME [facility] Insulin Human Lispro (Insulin Lispro 100 Unit/Ml 3 Ml Vial) 0 unit SUBCUT QIDACHS [facility]; Protocol Last Admin: 03/26/24 07:08 Dose: 8 unit Lisinopril (Lisinopril 2.5 Mg Tablet) 2.5 mg PO DAILY [facility]; Protocol Last Admin: 03/26/24 07:40 Dose: 2.5 mg Magnesium Hydroxide (Milk Of Magnesia 30 Ml Oral.Susp) 30 ml PO DAILY PRN PRN Reason: Constipation Sodium Chloride (0.9 % Sodium Chloride Flush 3 Ml Syringe) 3 ml IVFLUSH QSHIFT [facility] Last Admin: 03/26/24 07:49 Dose: 3 ml Temazepam (Temazepam 15 Mg Capsule) 15 mg PO BEDTIME PRN PRN Reason: Insomnia Home Medications ?Medication ?Instructions ?Recorded ?Confirmed ?Last Taken ?Type atorvastatin 40 mg tablet 40 mg PO DAILY 03/25/24 03/25/24 Unknown History insulin glargine 100 unit/mL (3 18 unit subcut DAILY@199903/25/24 03/25/24 Unkn own History mL) subcutaneous pen (Lantus Solostar U-100 Insulin) lisinopril 2.5 mg tablet 2.5 mg PO DAILY 03/25/24 03/25/24 Unknown History metformin 1,000 mg tablet 1,000 mg PO BID 03/25/24 03/25/24 Unknown History Physical Exam Vital Signs: Vital Signs: Last Vital Signs Temp 97.7 F 03/26/24 07:06 Pulse 92 03/26/24 07:06 Resp 17 03/26/24 07:06 BP 138/62 03/26/24 07:06 Pulse Ox 94 03/26/24 07:06 O2 Del Method Room Air 03/26/24 07:06 BMI result Body Mass Index 25.0 Const: Other: looks uncomfortable, says she is in pain General: No comfortable Orientation/consciousness: patient oriented x3 Neck: Neck: Yes no lymphadenopathy Resp: Auscultation: clear to auscultation bilaterally Cardio: Rhythm: regular rhythm GI: Other: Significantly tender on the right upper quadrant Palpation (GI): Soft to palpation, Tenderness to palpation present (GI) and no guarding Neuro: General: patient oriented x3 Results Results Labs: Short CBC 03/25/24 03/26/24 Range/Units 11:36 08:01 WBC 22.5 H 18.4 H (4.8-10.8) X10*3/uL Hgb 13.5 12.4 (12.0-16.0) g/dl Hct 39.0 36.9 L (37.0-47.0) % Plt Count 244 D 199 (160-400) X10*3/uL BMP 03/25/24 03/26/24 11:36 08:01 Sodium 143 143 Potassium 4.0 3.7 Chloride 103 107 Carbon Dioxide 27 26 BUN 16 15 Creatinine 0.95 0.75 Calcium 10.7 H 9.9 D Liver Function 03/25/24 Range/Units 11:36 Total Bilirubin 0.6 (0.0-1.0) mg/dL AST 25 (5-31) U/L ALT 42 H (0-31) U/L Alkaline Phosphatase 80 (39-117) U/L Albumin 4.3 (3.5-5.0) g/dL Urine 03/25/24 Range/Units 11:40 Urine Color Yellow Urine Appearance Cloudy Urine pH 6.0 (5.0-9.0) Ur Specific [place] >= 1.030 H (1.005-1.025) Urine Protein 100 (2+) H (Neg-Trace) mg/dL Urine Glucose (UA) >=1000 H (Negative) mg/dL Abdomen CT scan report/results: report reviewed and image reviewed CT scan - pelvis: report reviewed and image reviewed Additional studies: Laboratory Results WBC 18.4 X10*3/uL (4.8-10.8) H 03/26/24 08:01 RBC 4.04 X10*6/uL (4.20-5.50) L 03/26/24 08:01 Hgb 12.4 g/dl (12.0-16.0) 03/26/24 08:01 Hct 36.9 % (37.0-47.0) L 03/26/24 08:01 MCV 91.3 fL (80.0-98.0) 03/26/24 08:01 MCH 30.7 pg (27.0-33.0) 03/26/24 08:01 MCHC 33.6 g/dl (31.0-35.0) 03/26/24 08:01 RDW 13.7 % (11.0-16.0) 03/26/24 08:01 Plt Count 199 X10*3/uL (160-400) 03/26/24 08:01 MPV 9.4 fL (9.4-12.3) 03/26/24 08:01 Immature Gran % (Auto) 0.8 % (0.0-0.4) H 03/25/24 11:36 Neut % (Auto) 90.3 % (45-73) H 03/25/24 11:36 Lymph % (Auto) 4.7 % (20-40) L 03/25/24 11:36 [place] % (Auto) 4.0 % (2-11) 03/25/24 11:36 Eos % (Auto) 0.0 % (0-4) 03/25/24 11:36 Baso % (Auto) 0.2 % (0-2) 03/25/24 11:36 Lymph # (Auto) 1.1 X10*3/uL (1.2-4.9) L 03/25/24 11:36 [place] # (Auto) 0.9 X10*3/uL (0.1-1.2) 03/25/24 11:36 Eos # (Auto) 0.0 X10*3/uL (0.0-0.4) 03/25/24 11:36 Baso # (Auto) 0.1 X10*3/uL (0.0-0.2) 03/25/24 11:36 Abs Immat Gran (auto) 0.19 X10*3/uL (0.00-0.03) H 03/25/24 11:36 Absolute Neuts (auto) 20.3 x10*3/uL (2.0-8.3) H 03/25/24 11:36 Absolute Nucleated RBC 0.000 X10*3/uL (0.0-0.012) 03/26/24 08:01 Nucleated RBC % (auto) 0.0 /100WBC (0.0-0.2) 03/26/24 08:01 Smear Tech's Comments VERIFIED 03/25/24 11:36 PT 14.6 SEC (11.1-13.3) H 03/25/24 11:36 INR 1.2 (0.9-1.1) H 03/25/24 11:36 Sodium 143 mmol/L (135-145) 03/26/24 08:01 Potassium 3.7 mmol/L (3.3-5.1) 03/26/24 08:01 Chloride 107 mmol/L (96-108) 03/26/24 08:01 Carbon Dioxide 26 mmol/L (22-29) 03/26/24 08:01 Anion Gap 14 (12-20) 03/26/24 08:01 BUN 15 mg/dL (9-16) 03/26/24 08:01 Creatinine 0.75 mg/dL (0.5-1.4) 03/26/24 08:01 Estim Creat Clear Calc 69.1 03/26/24 08:01 Estimated GFR > 60 03/26/24 08:01 POC Glucose 254 mg/dL (60-115) H 03/26/24 07:58 Random Glucose 287 mg/dL (60-115) H 03/26/24 08:01 Lactic Acid 2.4 mmol/L (0.5-2.0) H* 03/25/24 11:36 Lactic Acid F/U @ 2Hr 2.1 mmol/L (0.5-2.0) H* 03/25/24 14:59 Lactic Acid F/U @ 4Hr 1.9 mmol/L (0.5-2.0) 03/25/24 17:16 Calcium 9.9 mg/dL (8.4-10.2) D 03/26/24 08:01 Total Bilirubin 0.6 mg/dL (0.0-1.0) 03/25/24 11:36 AST 25 U/L (5-31) 03/25/24 11:36 ALT 42 U/L (0-31) H 03/25/24 11:36 Alkaline Phosphatase 80 U/L (39-117) 03/25/24 11:36 Total Protein 8.3 g/dL (6.5-8.0) H 03/25/24 11:36 Albumin 4.3 g/dL (3.5-5.0) 03/25/24 11:36 Lipase 6 U/L (8-78) L 03/25/24 11:36 Urine Color Yellow 03/25/24 11:40 Urine Appearance Cloudy 03/25/24 11:40 Urine pH 6.0 (5.0-9.0) 03/25/24 11:40 Ur Specific [place] >= 1.030 (1.005-1.025) H 03/25/24 11:40 Urine Protein 100 (2+) mg/dL (Neg-Trace) H 03/25/24 11:40 Urine Glucose (UA) >=1000 mg/dL (Negative) H 03/25/24 11:40 Urine Ketones Negative mg/dL (Negative) 03/25/24 11:40 Urine Blood Trace (Negative) H 03/25/24 11:40 Urine Nitrite Negative (Negative) 03/25/24 11:40 Ur Leukocyte Esterase Small (1+) (Negative) H 03/25/24 11:40 Urine RBC 0-2 /HPF (0-2) 03/25/24 11:40 Urine WBC >50 /HPF (0-5) H 03/25/24 11:40 Ur Squamous Epith Cells 6-10 /HPF (0-2) 03/25/24 11:40 Urine Bacteria 4+ (None Seen) 03/25/24 11:40 Hyaline Casts 0-2 /LPF (0-2) 03/25/24 11:40 Impressions Abdomen/Pelvis CT 03/25/24 13:57 IMPRESSION: 1. Gallbladder is markedly distended, there is enhancement and thickening of gallbladder wall and probably gallstones, raising possibility for possible gallbladder disease including acute cholecystitis. Attention to correlation with follow-up ultrasound or HIDA scan recommended. 2. There are wedge-shaped hypodensities in the kidneys bilaterally at least 2 of which on the right side and 2 on the left, this is concerning for renal segmental infarcts versus scars versus less likely infection or septic emboli. No kidney stone or hydronephrosis. 3. Other noncritical findings as above. (Referring physician staff is being called, by physician staff assistance, to be alerted of the above critical findings and recommendations.) 03/25/2024 3:07 PM Assessment and Plan (1) Cholecystitis: Status: Acute 64-year-old female a right upper quadrant pain radiating to the flank and back, with CT scan findings consistent with acute cholecystitis. She is still very tender on exam and says she has significant pain. I therefore told her it may be best to proceed with cholecystectomy today. I had a long discussion with her about the technique of laparoscopic cholecystectomy and possible open cholecystectomy. I reviewed with her the risks including but not limited to bleeding, infections, injury to other organs including bowel, liver, bile duct, retained stones, bile leak, as well as the benefits and alternatives. She understands and wants to proceed Her daughter Danay was involved with the discussion. Her LFTs are normal. Imaging does show severe inflammatory changes of the gallbladder. Difficult dissection is anticipated. Quality Stroke Does the patient have a stroke diagnosis?: No VTE Prior VTE?: No VTE Risk Level:: Surgical - low VTE Device Contraindication: Treatment Not Indicated VTE Drug Contraindication: Treatment Not Indicated Procedures Date of Service Date of Service: 03/26/24
[2024-03-26] MEDS: HYDROmorphone HCl 0.5 MG/0.5 ML SYRINGE IVPUSH (10:35)
[2024-03-26 11:24] LABS: Glucose, Whole Blood 223 mg/dL (60-115)
--- NOTE | 2024-03-26 11:51 | P.CONAN_ITS ---
HPI - Anesthesia Eval Consult details Narrative: 64 yo F admitted with acute cholecystitis PMFSH Active Problems Active Problems: All Active Problems Hypertension (Acute) Diabetes mellitus (Acute) UTI (urinary tract infection) (Acute) Cholecystitis (Acute) Past Medical History Medical History Hypertension Diabetes mellitus Family History Family history of problems with anesthesia: No Surgical History History of Problems with Anesthesia: No Social History Social History Household Members: Spouse Housing: House Do you presently have visiting nurse or other home services: No Patient Tobacco Use Status: Never used Tobacco Smoked in Last 30 Days: No Use of substances other than those prescribed or required for medical reasons: No Currently Displaying Signs/Symptoms of Drug Intoxication Withdrawal: No Have you been hit, kicked, punched, or otherwise hurt by someone within the past year? If so, by whom?: No Do you feel safe in your current relationship?: Yes Is there a partner from a previous relationship who is making you feel unsafe now?: No Are you made to feel afraid or neglected: No Advance Directives: No Advance Directives Information Provided: Yes Do you have a plan to hurt others: No Plan Recently lost weight without trying: Yes Eating poorly because of decreased appetite: No Nutrition Risks: No Nutritional Risk Patient : No : No Poor oral hygiene: No Meds Allergies Allergy/AdvReac Type Severity Reaction Status Date / Time No Known Allergies Allergy Verified 03/25/24 11:05 Active Medications: Current Medications Acetaminophen (Acetaminophen 325 Mg Tablet) 650 mg PO Q6H PRN PRN Reason: Pain, Mild (Pain Scale 1-3) Last Admin: 03/25/24 18:50 Dose: 650 mg Al Hydroxide/Mg Hydroxide (Magnesium Hydrox/Alum Hydrox 30 Ml Oral.Susp) 30 ml PO Q4H PRN PRN Reason: Heartburn/Nausea Atorvastatin Calcium (Atorvastatin Calcium 40 Mg Tablet) 40 mg PO DAILY [facility] Last Admin: 03/26/24 07:40 Dose: 40 mg Glucose (Glucose Gel 15 Gm Gel..Gram.) 15 gm PO Q15M PRN; Protocol PRN Reason: per Hypoglycemia Standing Ord. Hydromorphone HCl (Hydromorphone Hcl 1 Mg/Ml Syringe) 0.5 mg IVPUSH Q4H PRN; Protocol PRN Reason: Pain, Severe (Pain Scale 7-10) Last Admin: 03/26/24 07:40 Dose: 0.5 mg Lactated Ringer's (Lr) 1,000 mls @ 100 mls/hr IVCONT .Q10H [facility] Last Admin: 03/26/24 06:28 Dose: 100 mls/hr Dextrose (D10) 250 mls @ 750 mls/hr IV Q15M PRN; Protocol PRN Reason: per Hypoglycemia Standing Ord. Piperacillin Sod/Tazobactam (Sod 4.5 gm/ Sodium Chloride) 100 mls @ 200 mls/hr IV Q6H [facility] Last Infusion: 03/26/24 08:19 Dose: Infused Insulin Glargine (Insulin Glargine,Hum.Rec.Anlog 100 Unit/Ml 10 Ml Vial) 9 unit SUBCUT BEDTIME [facility] Insulin Human Lispro (Insulin Lispro 100 Unit/Ml 3 Ml Vial) 0 unit SUBCUT QIDACHS [facility]; Protocol Last Admin: 03/26/24 11:38 Dose: Not Given Lisinopril (Lisinopril 2.5 Mg Tablet) 2.5 mg PO DAILY [facility]; Protocol Last Admin: 03/26/24 07:40 Dose: 2.5 mg Magnesium Hydroxide (Milk Of Magnesia 30 Ml Oral.Susp) 30 ml PO DAILY PRN PRN Reason: Constipation Sodium Chloride (0.9 % Sodium Chloride Flush 3 Ml Syringe) 3 ml IVFLUSH QSHIFT [facility] Last Admin: 03/26/24 07:49 Dose: 3 ml Temazepam (Temazepam 15 Mg Capsule) 15 mg PO BEDTIME PRN PRN Reason: Insomnia Home Medications ?Medication ?Instructions ?Recorded ?Confirmed ?Last Taken ?Type atorvastatin 40 mg tablet 40 mg PO DAILY 03/25/24 03/25/24 Unknown History insulin glargine 100 unit/mL (3 18 unit subcut DAILY@199903/25/24 03/25/24 Unknown History mL) subcutaneous pen (Lantus Solostar U-100 Insulin) lisinopril 2.5 mg tablet 2.5 mg PO DAILY 03/25/24 03/25/24 Unknown History metformin 1,000 mg tablet 1,000 mg PO BID 03/25/24 03/25/24 Unknown History Exam Exam Date and Time: March 23, 2024 1151 Height,Weight and Vital Signs: Height 5 ft 3 in Weight 64 kg Last Vital Signs Temp 97.7 F 03/26/24 07:06 Pulse 92 03/26/24 07:06 Resp 17 03/26/24 07:06 BP 138/62 03/26/24 07:06 Pulse Ox 94 03/26/24 07:06 O2 Del Method Room Air 03/26/24 07:06 Pertinent Lab Results Pertinent Lab Results: Laboratory Tests 03/25/24 03/25/24 03/25/24 11:36 11:40 14:59 WBC 22.5 H RBC 4.36 Hgb 13.5 Hct 39.0 MCV 89.4 MCH 34.6 H MCHC 34.6 RDW 13.3 Plt Count 244 D MPV 9.2 L Immature Gran % (Auto) 0.8 H Neut % (Auto) 90.3 H Lymph % (Auto) 4.7 L [place] % (Auto) 4.0 Eos % (Auto) 0.0 Baso % (Auto) 0.2 Lymph # (Auto) 1.1 L [place] # (Auto) 0.9 Eos # (Auto) 0.0 Baso # (Auto) 0.1 Abs Immat Gran (auto) 0.19 H Absolute Neuts (auto) 20.3 H Absolute Nucleated RBC 0.000 Nucleated RBC % (auto) 0.0 Smear Tech's Comments VERIFIED PT 14.6 H INR 1.2 H Sodium 143 Potassium 4.0 Chloride 103 Carbon Dioxide 27 Anion Gap 17 BUN 16 Creatinine 0.95 Estim Creat Clear Calc 50.1 Estimated GFR 59 POC Glucose Random Glucose 334 H Lactic Acid 2.4 H* Lactic Acid F/U @ 2Hr 2.1 H* Lactic Acid F/U @ 4Hr Calcium 10.7 H Total Bilirubin 0.6 AST 25 ALT 42 H Alkaline Phosphatase 80 Total Protein 8.3 H Albumin 4.3 Lipase 6 L Urine Color Yellow Urine Appearance Cloudy Urine pH 6.0 Ur Specific [place] >= 1.030 H Urine Protein 100 (2+) H Urine Glucose (UA) >=1000 H Urine Ketones Negative Urine Blood Trace H Urine Nitrite Negative Ur Leukocyte Esterase Small (1+) H Urine RBC 0-2 Urine WBC >50 H Ur Squamous Epith Cells 6-10 Urine Bacteria 4+ Hyaline Casts 0-2 Blood Type Antibody Screen 03/25/24 03/25/2403/26/24 17:16 18:47 00:12 WBC RBC Hgb Hct MCV MCH MCHC RDW Plt Count MPV Immature Gran % (Auto) Neut % (Auto) Lymph % (Auto) [place] % (Auto) Eos % (Auto) Baso % (Auto) Lymph # (Auto) [place] # (Auto) Eos # (Auto) Baso # (Auto) Abs Immat Gran (auto) Absolute Neuts (auto) Absolute Nucleated RBC Nucleated RBC % (auto) Smear Tech's Comments PT INR Sodium Potassium Chloride Carbon Dioxide Anion Gap BUN Creatinine Estim Creat Clear Calc Estimated GFR POC Glucose 292 H 279 H Random Glucose Lactic Acid Lactic Acid F/U @ 2Hr Lactic Acid F/U @ 4Hr 1.9 Calcium Total Bilirubin AST ALT Alkaline Phosphatase Total Protein Albumin Lipase Urine Color Urine Appearance Urine pH Ur Specific [place] Urine Protein Urine Glucose (UA) Urine Ketones Urine Blood Urine Nitrite Ur Leukocyte Esterase Urine RBC Urine WBC Ur Squamous Epith Cells Urine Bacteria Hyaline Casts Blood Type Antibody Screen 03/26/24 03/26/24 03/26/24 06:39 07:58 08:01 WBC 18.4 H RBC 4.04 L Hgb 12.4 Hct 36.9 L MCV 91.3 MCH 30.7 MCHC 33.6 RDW 13.7 Plt Count 199 MPV 9.4 Immature Gran % (Auto) Neut % (Auto) Lymph % (Auto) [place] % (Auto) Eos % (Auto) Baso % (Auto) Lymph # (Auto) [place] # (Auto) Eos # (Auto) Baso # (Auto) Abs Immat Gran (auto) Absolute Neuts (auto) Absolute Nucleated RBC 0.000 Nucleated RBC % (auto) 0.0 Smear Tech's Comments PT INR Sodium 143 Potassium 3.7 Chloride 107 Carbon Dioxide 26 Anion Gap 14 BUN 15 Creatinine 0.75 Estim Creat Clear Calc 69.1 Estimated GFR > 60 POC Glucose 309 H 254 H Random Glucose 287 H Lactic Acid Lactic Acid F/U @ 2Hr Lactic Acid F/U @ 4Hr Calcium 9.9 D Total Bilirubin AST ALT Alkaline Phosphatase Total Protein Albumin Lipase Urine Color Urine Appearance Urine pH Ur Specific [place] Urine Protein Urine Glucose (UA) Urine Ketones Urine Blood Urine Nitrite Ur Leukocyte Esterase Urine RBC Urine WBC Ur Squamous Epith Cells Urine Bacteria Hyaline Casts Blood Type Antibody Screen 03/26/24 03/26/24 09:41 11:10 WBC RBC Hgb Hct MCV MCH MCHC RDW Plt Count MPV Immature Gran % (Auto) Neut % (Auto) Lymph % (Auto) [place] % (Auto) Eos % (Auto) Baso % (Auto) Lymph # (Auto) [place] # (Auto) Eos # (Auto) Baso # (Auto) Abs Immat Gran (auto) Absolute Neuts (auto) Absolute Nucleated RBC Nucleated RBC % (auto) Smear Tech's Comments PT INR Sodium Potassium Chloride Carbon Dioxide Anion Gap BUN Creatinine Estim Creat Clear Calc Estimated GFR POC Glucose 223 H Random Glucose Lactic Acid Lactic Acid F/U @ 2Hr Lactic Acid F/U @ 4Hr Calcium Total Bilirubin AST ALT Alkaline Phosphatase Total Protein Albumin Lipase Urine Color Urine Appearance Urine pH Ur Specific [place] Urine Protein Urine Glucose (UA) Urine Ketones Urine Blood Urine Nitrite Ur Leukocyte Esterase Urine RBC Urine WBC Ur Squamous Epith Cells Urine Bacteria Hyaline Casts Blood Type O Positive Antibody Screen NEGATIVE Airway Mallampati Class: II TM Dist: >3cm Neck ROM: Full Loose/Missing/Broken Teeth: No (patient denies any loose or broken teeth) Heart: S1S2 Lungs: CTAB Assessment and Plan Assessment Anesthesia Assessment: Anesthesia Plan Discussed and Chart Reviewed Final Anesthetic Review Family History of Problems with Anesthesia: No History of Problems with Anesthesia: No NPO: Yes ASA Class: II and Emergency Final Preanesthetic Review: No Changes in Pt Med Stat, Meds/Allgs Chart Reviewed, Consent Obtained/Reviewed and Anes Risks/Benef Reviewed Patient Risk: Low Procedure Risk: Low Anesthetic Plan Anesthetic Plan: GA and Agree w/ Assess. and Plan Disposition: Standard PACU
--- NOTE | 2024-03-26 13:39 | W.PM.OPN ---
Operative Note Operative Note Date of Service: 03/26/24 Narrative: Preop diagnosis: Acute cholecystitis Postop diagnosis: Acute gangrenous cholecystitis Procedure: Attempted laparoscopic cholecystectomy converted to open cholecystectomy via a subcostal incision Surgeon: Lobito Ledezma MD recreational assistant: KENDRA Lorenzo The patient is a 64-year-old female admitted yesterday because of right upper quadrant pain with CT scan consistent with acute cholecystitis. She was in severe pain and with leukocytosis so I explained to her it would be best to proceed with cholecystectomy. She understood the technique of laparoscopic cholecystectomy possible open. She was aware of the risks, benefits, and alternatives. She was brought to the operating room placed supine under general anesthesia via endotracheal tube. The abdomen was prepped and draped in the usual sterile fashion. A surgical time-out was done. The patient was receiving scheduled IV antibiotics An OG tube was placed because of gastric distention on CT scan and there was note of more than 800 cc of bilious gastric contents drained I made a short supraumbilical incision using a blade 15. This was carried down through the full-thickness of the skin and subcutaneous fat down to the fascia. The fascia was incised. The peritoneum was entered. Through this incision a Don port was introduced. Pneumoperitoneum was introduced to a pressure of 15 mm Hg. We then inserted the 10 mm laparoscope and examined the right upper quadrant. The gallbladder was markedly distended and appeared to be gangrenous. There was note of some large amounts of pericholecystic fluid surrounding this. There was note of significant inflammatory changes in the area so I decided that it would be best to proceed with open cholecystectomy. I desufflated and removed the Don port I made a subcostal incision on the right side with a blade 15. This carried down through the full-thickness of the skin subcutaneous fat. The anterior sheath was incised. I divided the rectus muscles all the way laterally. I divided the posterior sheath to enter the peritoneum. The gallbladder was immediately seen and this was markedly distended and gangrenous. The gallbladder wall appeared very thickened as well. Again there was note of a lot of clear serous fluid surrounding this with some tinge of bile. I applied the Bookwalter retractors to allow good exposure gallbladder. The bowel loops were retracted away from this inferiorly and medially I grasped the this of the gallbladder with a Inga clamp. I made an incision on the gallbladder near the liver edge using blade 15 and identified a plane of dissection the wall from the liver bed. I continued to define this plane of dissection all around the gallbladder surrounding the liver bed. I was able to gently peel off the gallbladder away from the liver bed in view of the significant edema within this plane of dissection making this possible. I continued to divide the thickened rind surrounding the gallbladder all the way anteriorly and by doing so was able to eventually separate the gallbladder from the liver bed and visualize the funneling of the gallbladder at the neck towards the cystic duct. The cystic artery was seen and this was ligated with Polysorb 3-0 ties. I was able to continue to dissect distally the neck until so what appeared to be the cystic duct. I applied a right angle clamp on the cystic duct. I divided this a pile the clamp and the gallbladder was sent as a specimen. I doubly ligated the cystic duct stump with Polysorb 2-0 ties I observed the liver bed and there was no bleeding noted. The adjacent bowel loops were also examined and did not appear to have any injury I copiously irrigated. I suctioned out the irrigant fluid and this appeared to be clear towards the end I position a 10 LORE drain on the subhepatic space and this was brought out through an exit site below the incision laterally he would this LORE drain was secured to the skin with nylon sutures I then proceeded to close the posterior sheath running stitch using Polysorb 2-0. The anterior sheath was closed with a running Maxon 1 stitch. Closed the fascia of the umbilical incision with a [id number] Polysorb 0 stitch Skin closure was achieved on all incisions using skin reece All incisions were infiltrated with Marcaine 0.5% for postop analgesia. Dressings were applied and the procedure was completed The patient tolerated the procedure well. There were no immediate complications. Initial and final counts of sponges and instruments were correct. Estimated blood loss was about 50 cc The patient was extubated without difficulty and transferred to the recovery room with stable vital signs.
[2024-03-26 14:34] LABS: Glucose, Whole Blood 227 mg/dL (60-115)
--- NOTE | 2024-03-26 14:46 | PM.EVENT ---
Event Note Date of Service: 03/26/24 Event Note: seen postop s/p open mila for gangrenous cholecystitis looks comfortable with adequate pain control LORE drain - serosanguinous vital signs ok pain mgt continue Dipakozzy daughter Danay updated Time Spent With Patient Time: Total time managing care of this patient today ____ minutes.
--- NOTE | 2024-03-26 16:32 | MHC.CM.PN ---
PT REPORTS SHE LIVES WITH HER AND IS INDEPENDENT WITH CARE SHE HAS NO SERVICES OR DME SHE DECLINES TO COMPLETE A HCP PCP AT [facility] IN [place] DCP: HOME NO SERVICES VIA PRIVATE TRANSPORT
[2024-03-26 16:41] LABS: Glucose, Whole Blood 251 mg/dL (60-115)
[2024-03-26] MEDS: Acetaminophen 1,000 MG/100 ML PIGGYBACK 400 MG IV (18:18)
[2024-03-26 20:24] LABS: Glucose, Whole Blood 204 mg/dL (60-115)
[2024-03-27] MEDS: Lactated Ringers 1,000 ML 100 ML IVCONT (00:59)
[2024-03-27] MEDS: Acetaminophen 1,000 MG/100 ML PIGGYBACK 400 MG IV ×3 (00:59→13:14)
[2024-03-27] MEDS: Piperacillin Sodium/Tazobactam 4.5 GM in 0.9 % Sodium Chloride 100 ML IV ×4 (02:45→21:01)
[2024-03-27 03:28] VITALS: BP 120/62; PULSE 79; RESP 18; TEMP 36.3; O2SAT 92
[2024-03-27] MEDS: HYDROmorphone HCl 1 MG/ML SYRINGE 0.5 MG IVPUSH ×2 (03:48→08:40)
[2024-03-27 05:56] LABS: Hematocrit 31.5 % (37.0-47.0); Hemoglobin 10.5 g/dl (12.0-16.0); Mean Corpuscular HGB Conc 33.3 g/dl (31.0-35.0); Mean Corpuscular Hemoglobin 30.6 pg (27.0-33.0); Mean Corpuscular Volume 91.8 fL (80.0-98.0); Mean Platelet Volume 9.8 fL (9.4-12.3); Platelet Count 163 X10*3/uL (160-400); Red Blood Count 3.43 X10*6/uL (4.20-5.50); Red Cell Distribution Width 13.7 % (11.0-16.0); White Blood Count 13.1 X10*3/uL (4.8-10.8)
[2024-03-27 06:09] LABS: Anion Gap 12 (12-20); Blood Urea Nitrogen 23 mg/dL (9-16); Carbon Dioxide 27 mmol/L (22-29); Chloride 109 mmol/L (96-108); Creatinine Clr Calc Pharmacy 63.2; Estimated Glomerular Filt Rate > 60; Glucose Random 167 mg/dL (60-115); Potassium 3.4 mmol/L (3.3-5.1); Sodium 145 mmol/L (135-145)
[2024-03-27 07:22] LABS: Glucose, Whole Blood 144 mg/dL (60-115)
[2024-03-27 07:27] VITALS: BP 131/63; PULSE 81; RESP 16; TEMP 36.2; O2SAT 93
[2024-03-27] MEDS: Atorvastatin Calcium 40 MG TABLET PO (07:58)
[2024-03-27] MEDS: lisinopriL 2.5 MG TABLET PO (07:58)
[2024-03-27] MEDS: 0.9 % Sodium Chloride Flush 3 ML SYRINGE IVFLUSH ×2 (07:59→15:47)
--- NOTE | 2024-03-27 08:09 | P.PNGS_ITS ---
Subjective Subjective Date of Service: 03/27/24 <Serina Lorenzo PA-C - Last Filed: 03/27/24 08:12> 03/27/24 <Lobito Ledezma MD - Last Filed: 03/27/24 08:23> Interval history: Feels much better this morning. Pain significantly improved, mild incisional pain. OOB and ambulating to bathroom. Tolerating clear liquids and feels hungry. <Serina Lorenzo PA-C - Last Filed: 03/27/24 08:12> Physical Exam 2 Vital Signs: Vital Signs: Last Vital Signs Temp 97.1 F 03/27/24 07:27 Pulse 81 03/27/24 07:27 Resp 16 03/27/24 07:27 BP 131/63 03/27/24 07:27 Pulse Ox 93 03/27/24 07:27 O2 Del Method Room Air 03/27/24 07:27 O2 Flow Rate 2 03/26/24 23:47 BMI result Body Mass Index 25.0 <Serina Lorenzo PA-C - Last Filed: 03/27/24 08:12> Const: General: comfortable, no acute distress and alert <Serina Lorenzo PA-C - Last Filed: 03/27/24 08:12> Orientation/consciousness: patient oriented x3 <SHEYLA Benjamin Last Filed: 03/27/24 08:12> Resp: Effort & Inspection: normal respiratory effort <SHEYLA Benjamin Last Filed: 03/27/24 08:12> GI: Other: LORE scant serosanguineous <SHEYLA Benjamin Last Filed: 03/27/24 08:12> Inspection: No distended and Yes incision (dressing c/d/i) <SHEYLA Benjamin Last Filed: 03/27/24 08:12> Palpation (GI): Soft to palpation, Tenderness to palpation present (GI) (mild incisional) and no guarding <SHEYLA Benjamin Last Filed: 03/27/24 08:12> Skin: General skin exam: no rashes or lesions noted and no jaundice < SHEYLA Benjamin Last Filed: 03/27/24 08:12> Neuro: General: patient oriented x3 <Serina Lorenzo PA-C - Last Filed: 03/27/24 08:12> Objective Data Active Medications Acetaminophen (Acetaminophen 325 Mg Tablet) 650 mg PO Q6H PRN PRN Reason: Pain, Mild (Pain Scale 1-3) Last Admin: 03/25/24 18:50 Dose: 650 mg Documented By: ERNESTO Al Hydroxide/Mg Hydroxide (Magnesium Hydrox/Alum Hydrox 30 Ml Oral.Susp) 30 ml PO Q4H PRN PRN Reason: Heartburn/Nausea Atorvastatin Calcium (Atorvastatin Calcium 40 Mg Tablet) 40 mg PO DAILY [facility] Last Admin: 03/27/24 07:58 Dose: 40 mg Documented By: DO Glucose (Glucose Gel 15 Gm Gel..Gram.) 15 gm PO Q15M PRN; Protocol PRN Reason: per Hypoglycemia Standing Ord. Haloperidol Lactate (Haloperidol Lactate 5 Mg/Ml Vial) 1 mg IVPUSH ONCE PRN PRN Reason: Nausea and Vomiting Hydromorphone HCl (Hydromorphone Hcl 1 Mg/Ml Syringe) 0.5 mg IVPUSH Q3H PRN; Protocol PRN Reason: Pain, Severe (Pain Scale 7-10) Last Admin: 03/27/24 03:48 Dose: 0.5 mg Documented By: AMY Lactated Ringer's (Lr) 1,000 mls @ 100 mls/hr IVCONT .Q10H [facility] Last Admin: 03/27/24 00:59 Dose: 100 mls/hr Documented By: AMY Dextrose (D10) 250 mls @ 750 mls/hr IV Q15M PRN; Protocol PRN Reason: per Hypoglycemia Standing Ord. Acetaminophen (Ofirmev) 1,000 mg in 100 mls @ 400 mls/hr IV Q6H [facility] Stop: 03/27/24 13:14 Last Admin: 03/27/24 07:58 Dose: 400 mls/hr Documented By: DO Piperacillin Sod/Tazobactam (Sod 4.5 gm/ Sodium Chloride) 100 mls @ 200 mls/hr IV Q6H [facility] Last Infusion: 03/27/24 03:15 Dose: Infused Documented By: AMY Insulin Glargine (Insulin Glargine,Hum.Rec.Anlog 100 Unit/Ml 10 Ml Vial) 9 unit SUBCUT BEDTIME [facility] Last Admin: 03/26/24 20:39 Dose: 9 unit Documented By: AMY Insulin Human Lispro (Insulin Lispro 100 Unit/Ml 3 Ml Vial) 0 unit SUBCUT QIDACHS [facility]; Protocol Last Admin: 03/27/24 07:35 Dose: Not Given Documented By: DO Non-Admin Reason: No Insulin Coverage Lisinopril (Lisinopril 2.5 Mg Tablet) 2.5 mg PO DAILY [facility]; Protocol Last Admin: 03/27/24 07:58 Dose: 2.5 mg Documented By: DO Magnesium Hydroxide (Milk Of Magnesia 30 Ml Oral.Susp) 30 ml PO DAILY PRN PRN Reason: Constipation Ondansetron HCl (Ondansetron Hcl 4 Mg/2 Ml Vial) 4 mg IVPUSH Q8H PRN PRN Reason: Nausea and Vomiting Oxycodone HCl (Oxycodone Hcl Immed Release 5 Mg Tablet) 10 mg PO Q4H PRN PRN Reason: Pain, Moderate(Pain Scale 4-6) Sodium Chloride (0.9 % Sodium Chloride Flush 3 Ml Syringe) 3 ml IVFLUSH QSHIFT [facility] Last Admin: 03/27/24 07:59 Dose: 3 ml Documented By: DO Temazepam (Temazepam 15 Mg Capsule) 15 mg PO BEDTIME PRN PRN Reason: Insomnia <Serina Lorenzo PA-C - Last Filed: 03/27/24 08:12> Labs CBC & Chem 7: 03/27/24 05:07 03/27/24 05:07 <Serina Lorenzo PA-C - Last Filed: 03/27/24 08:12> Labs: Laboratory Results - last 24 hr 03/26/24 03/26/24 03/26/24 08:01 09:41 11:10 MCV 91.3 MCH 30.7 MCHC 33.6 RDW 13.7 Plt Count 199 MPV 9.4 Absolute Nucleated RBC 0.000 Nucleated RBC % (auto) 0.0 Anion Gap 14 Estim Creat Clear Calc 69.1 Estimated GFR > 60 POC Glucose 223 H Random Glucose 287 H Calcium 9.9 D Blood Type O Positive Antibody Screen NEGATIVE 03/26/24 03/26/24 03/26/24 14:29 16:29 20:19 MCV MCH MCHC RDW Plt Count MPV Absolute Nucleated RBC Nucleated RBC % (auto) Anion Gap Estim Creat Clear Calc Estimated GFR POC Glucose 227 H 251 H 204 H Random Glucose Calcium Blood Type Antibody Screen 03/27/24 03/27/24 05:07 07:14 MCV 91.8 MCH 30.6 MCHC 33.3 RDW 13.7 Plt Count 163 MPV 9.8 Absolute Nucleated RBC 0.000 Nucleated RBC % (auto) 0.0 Anion Gap 12 Estim Creat Clear Calc 63.2 Estimated GFR > 60 POC Glucose 144 H Random Glucose 167 H Calcium 9.0 D Blood Type Antibody Screen <Serina Lorenzo PA-C - Last Filed: 03/27/24 08:12> Microbiology Microbiology Results: Microbiology 03/25/24 12:40 Urine Culture - Final Urine clean catch - Urine malcolm top Escherichia coli 03/25/24 12:44 Blood Culture - Preliminary Blood - Venous No growth after 24 hours. 03/25/24 12:39 Blood Culture - Preliminary Blood - Venous No growth after 24 hours. <Serina Lorenzo PA-C - Last Filed: 03/27/24 08:12> Procedures Date of Service Date of Service: 03/27/24 <Serina Lorenzo PA-C - Last Filed: 03/27/24 08:12> 03/27/24 <Lobito Ledezma MD - Last Filed: 03/27/24 08:23> Progress Note: A&P Assessment and plan (1) S/P cholecystectomy: Status: Acute <Serina Lorenzo PA-C - Last Filed: 03/27/24 08:12> (2) Cholecystitis: Status: Acute <Serina Lorenzo PA-C - Last Filed: 03/27/24 08:12> Assessment and Plan: feels much better pain on incision abd soft drain - serosanguinous diet as tolerated seen and examined independently <Lobito Ledezma MD - Last Filed: 03/27/24 08:23> Assessment and Plan: POD #1 s/p Attempted laparoscopic cholecystectomy converted to open cholecystectomy via a subcostal incision for acute gangrenous cholecystitis. Patient doing well post op, good pain control. VSS. Abd benign with appropriate post op tenderness, dressings intact, LORE nonbilious output. Will advance to solid diet, decrease IVF. Pain control. Possibly home tomorrow if tolerating solid diet and pain controlled on PO analgesics, likely remove LORE drain prior. <SHEYLA Benjamin Last Filed: 03/27/24 08:12> Time Spent With Patient Time: Total time managing care of this patient today ____ minutes. <Serina Lorenzo PA-C - Last Filed: 03/27/24 08:12> Quality Stroke Does the patient have a stroke diagnosis?: No <Serina Lorenzo PA-C - Last Filed: 03/27/24 08:12> VTE Prior VTE?: No <Serina Lorenzo PA-C - Last Filed: 03/27/24 08:12> VTE Risk Level:: Surgical - low <SHEYLA Benjamin Last Filed: 03/27/24 08:12> VTE Device Contraindication: Treatment Not Indicated <SHEYLA Benjamin Last Filed: 03/27/24 08:12> VTE Drug Contraindication: Treatment Not Indicated <SHEYLA Benjamin Last Filed: 03/27/24 08:12>
--- NOTE | 2024-03-27 10:55 | P.PNIM_ITS ---
Subjective Subjective Date of Service: 03/27/24 Interval History: f/u med management, admitted to surgery service for cholecystitis, s/p surgery and doing well Physical Exam 2 Vital Signs: Vital Signs: Last Vital Signs Temp 97.1 F 03/27/24 07:27 Pulse 81 03/27/24 07:27 Resp 16 03/27/24 07:27 BP 131/63 03/27/24 07:27 Pulse Ox 93 03/27/24 07:27 O2 Del Method Room Air 03/27/24 07:27 O2 Flow Rate 2 03/26/24 23:47 BMI result Body Mass Index 25.0 Const: Other: General: AO X 3, no acute distress Resp: CTA bilateral CVS: S1,S2,RRR GI: +BS, negeable tenderness, no distention Skin: No rash Neuro: motor grossly intact Psych: appropriate affect Objective Data Active Medications Acetaminophen (Acetaminophen 325 Mg Tablet) 650 mg PO Q6H PRN PRN Reason: Pain, Mild (Pain Scale 1-3) Last Admin: 03/25/24 18:50 Dose: 650 mg Documented By: ERNESTO Al Hydroxide/Mg Hydroxide (Magnesium Hydrox/Alum Hydrox 30 Ml Oral.Susp) 30 ml PO Q4H PRN PRN Reason: Heartburn/Nausea Atorvastatin Calcium (Atorvastatin Calcium 40 Mg Tablet) 40 mg PO DAILY [facility] Last Admin: 03/27/24 07:58 Dose: 40 mg Documented By: DO Glucose (Glucose Gel 15 Gm Gel..Gram.) 15 gm PO Q15M PRN; Protocol PRN Reason: per Hypoglycemia Standing Ord. Haloperidol Lactate (Haloperidol Lactate 5 Mg/Ml Vial) 1 mg IVPUSH ONCE PRN PRN Reason: Nausea and Vomiting Hydromorphone HCl (Hydromorphone Hcl 1 Mg/Ml Syringe) 0.5 mg IVPUSH Q3H PRN; Protocol PRN Reason: Pain, Severe (Pain Scale 7-10) Last Admin: 03/27/24 08:40 Dose: 0.5 mg Documented By: DO Lactated Ringer's (Lr) 1,000 mls @ 60 mls/hr IVCONT .[id number] [facility] Last Admin: 03/27/24 00:59 Dose: 100 mls/hr Documented By: AMY Dextrose (D10) 250 mls @ 750 mls/hr IV Q15M PRN; Protocol PRN Reason: per Hypoglycemia Standing Ord. Acetaminophen (Ofirmev) 1,000 mg in 100 mls @ 400 mls/hr IV Q6H [facility] Stop: 03/27/24 13:14 Last Infusion: 03/27/24 08:13 Dose: Infused Documented By: DO Piperacillin Sod/Tazobactam (Sod 4.5 gm/ Sodium Chloride) 100 mls @ 200 mls/hr IV Q6H [facility] Last Infusion: 03/27/24 09:01 Dose: Infused Documented By: DO Insulin Glargine (Insulin Glargine,Hum.Rec.Anlog 100 Unit/Ml 10 Ml Vial) 9 unit SUBCUT BEDTIME [facility] Last Admin: 03/26/24 20:39 Dose: 9 unit Documented By: AMY Insulin Human Lispro (Insulin Lispro 100 Unit/Ml 3 Ml Vial) 0 unit SUBCUT QIDACHS [facility]; Protocol Last Admin: 03/27/24 07:35 Dose: Not Given Documented By: DO Non-Admin Reason: No Insulin Coverage Lisinopril (Lisinopril 2.5 Mg Tablet) 2.5 mg PO DAILY [facility]; Protocol Last Admin: 03/27/24 07:58 Dose: 2.5 mg Documented By: DO Magnesium Hydroxide (Milk Of Magnesia 30 Ml Oral.Susp) 30 ml PO DAILY PRN PRN Reason: Constipation Ondansetron HCl (Ondansetron Hcl 4 Mg/2 Ml Vial) 4 mg IVPUSH Q8H PRN PRN Reason: Nausea and Vomiting Oxycodone HCl (Oxycodone Hcl Immed Release 5 Mg Tablet) 10 mg PO Q4H PRN PRN Reason: Pain, Moderate(Pain Scale 4-6) Sodium Chloride (0.9 % Sodium Chloride Flush 3 Ml Syringe) 3 ml IVFLUSH QSHIFT [facility] Last Admin: 03/27/24 07:59 Dose: 3 ml Documented By: DO Temazepam (Temazepam 15 Mg Capsule) 15 mg PO BEDTIME PRN PRN Reason: Insomnia Labs 03/27/24 05:07 03/27/24 05:07 Labs: Laboratory Results - last 24 hr 03/26/24 03/26/24 03/26/24 11:10 14:29 16:29 MCV MCH MCHC RDW Plt Count MPV Absolute Nucleated RBC Nucleated RBC % (auto) Anion Gap Estim Creat Clear Calc Estimated GFR POC Glucose 223 H 227 H 251 H Random Glucose Calcium 03/26/24 03/27/24 03/27/24 20:19 05:07 07:14 MCV 91.8 MCH 30.6 MCHC 33.3 RDW 13.7 Plt Count 163 MPV 9.8 Absolute Nucleated RBC 0.000 Nucleated RBC % (auto) 0.0 Anion Gap 12 Estim Creat Clear Calc 63.2 Estimated GFR > 60 POC Glucose 204 H 144 H Random Glucose 167 H Calcium 9.0 D Microbiology Microbiology Results: Microbiology 03/25/24 12:40 Urine Culture - Final Urine clean catch - Urine malcolm top Escherichia coli 03/25/24 12:44 Blood Culture - Preliminary Blood - Venous No growth after 24 hours. 03/25/24 12:39 Blood Culture - Preliminary Blood - Venous No growth after 24 hours. Assessment and Plan (1) S/P cholecystectomy: Status: Acute (2) Hypertension: Status: Acute (3) Diabetes mellitus: Status: Acute (4) UTI (urinary tract infection): Status: Acute (5) Cholecystitis: Status: Acute Plan 64/F with DM, HTN w/ acute cholecystitis s/p surgery Insulin-dependent diabetes mellitus with hyperglycemia, blood sugar better -continue SSI and reduced Lantus of 9, once eating can increse dose Acute cholecystitis with sepsis, improved, wbc down, s/p CCY, continue Abx (Zosyn), consider Augmentin at dc Acute lactic acidosis due to sepsis E coli UTI-Abx as above Hypertension: continue lisinopril Quality Stroke Does the patient have a stroke diagnosis?: No VTE Prior VTE?: No VTE Risk Level:: Surgical - low VTE Device Contraindication: Treatment Not Indicated VTE Drug Contraindication: Treatment Not Indicated
[2024-03-27] MEDS: Lactated Ringers 1,000 ML 60 ML IVCONT (11:06)
[2024-03-27 11:14] LABS: Glucose, Whole Blood 182 mg/dL (60-115)
[2024-03-27 12:00] VITALS: BP 134/64; PULSE 71; RESP 14; TEMP 36.3; O2SAT 96
[2024-03-27] MEDS: oxyCODONE HCl Immed Release 5 MG TABLET 10 MG PO ×3 (12:06→21:31)
[2024-03-27] MEDS: Insulin Lispro 100 UNIT/ML 3 ML VIAL SUBCUT ×2 (12:06→17:15)
[2024-03-27 16:00] VITALS: BP 125/63; PULSE 70; RESP 18; TEMP 36.3; O2SAT 94
[2024-03-27 16:23] LABS: Glucose, Whole Blood 158 mg/dL (60-115)
[2024-03-27 19:05] VITALS: BP 136/63; PULSE 79; RESP 18; TEMP 36.1; O2SAT 93
[2024-03-27 20:25] LABS: Glucose, Whole Blood 140 mg/dL (60-115)
[2024-03-27] MEDS: Insulin Glargine,Hum.rec.anlog 100 UNIT/ML 10 ML VIAL 9 UNIT SUBCUT (20:52)
[2024-03-28] VITALS (8 sets, daily range): BP systolic 121–148; BP diastolic 64–78; PULSE 75–83; RESP 16–18; TEMP 36.1–36.4; O2SAT 92–96
[2024-03-28] MEDS: oxyCODONE HCl Immed Release 5 MG TABLET 10 MG PO ×3 (01:50→20:32)
[2024-03-28] MEDS: Piperacillin Sodium/Tazobactam 4.5 GM in 0.9 % Sodium Chloride 100 ML IV ×4 (03:41→20:21)
--- NOTE | 2024-03-28 07:44 | P.PNGS_ITS ---
Subjective Subjective Date of Service: 03/28/24 <Serina Lorenzo PA-C - Last Filed: 03/28/24 07:47> 03/28/24 <Lobito Ledezma MD - Last Filed: 03/28/24 08:41> Interval history: Feeling ok this morning. Tolerating solid diet, had some nausea last night but resolved. Pain well controlled. OOB and ambulating without difficulty. < Serina Lorenzo PA-C - Last Filed: 03/28/24 07:47> Physical Exam 2 Vital Signs: Vital Signs: Last Vital Signs Temp 97.1 F 03/28/24 07:39 Pulse 75 03/28/24 07:39 Resp 16 03/28/24 07:39 BP 140/69 H 03/28/24 07:39 Pulse Ox 92 03/28/24 07:39 O2 Del Method Room Air 03/28/24 07:39 O2 Flow Rate 2 03/26/24 23:47 BMI result Body Mass Index 25.0 <Serina Lorenzo PA-C - Last Filed: 03/28/24 07:47> Const: General: comfortable, no acute distress and alert <Serina Lorenzo PA-C - Last Filed: 03/28/24 07:47> Orientation/consciousness: patient oriented x3 <SHEYLA Benjamin Last Filed: 03/28/24 07:47> Resp: Effort & Inspection: normal respiratory effort <Serina Lorenzo PA-C - Last Filed: 03/28/24 07:47> GI: Other: LORE drain serosanguineous <Serina Lorenzo PA-C - Last Filed: 03/28/24 07:47> Inspection: No distended and Yes incision (clean) <SHEYLA Benjamin Last Filed: 03/28/24 07:47> Palpation (GI): Soft to palpation, Tenderness to palpation present (GI) (mild incisional) and no guarding <SHEYLA Benjamin Last Filed: 03/28/24 07:47> Skin: General skin exam: no rashes or lesions noted <SHEYLA Benjamin Last Filed: 03/28/24 07:47> Neuro: General: patient oriented x3 <Serina Lorenzo PA-C - Last Filed: 03/28/24 07:47> Objective Data Active Medications Acetaminophen (Acetaminophen 325 Mg Tablet) 650 mg PO Q6H PRN PRN Reason: Pain, Mild (Pain Scale 1-3) Last Admin: 03/25/24 18:50 Dose: 650 mg Documented By: ERNESTO Al Hydroxide/Mg Hydroxide (Magnesium Hydrox/Alum Hydrox 30 Ml Oral.Susp) 30 ml PO Q4H PRN PRN Reason: Heartburn/Nausea Atorvastatin Calcium (Atorvastatin Calcium 40 Mg Tablet) 40 mg PO DAILY [facility] Last Admin: 03/27/24 07:58 Dose: 40 mg Documented By: DO Glucose (Glucose Gel 15 Gm Gel..Gram.) 15 gm PO Q15M PRN; Protocol PRN Reason: per Hypoglycemia Standing Ord. Haloperidol Lactate (Haloperidol Lactate 5 Mg/Ml Vial) 1 mg IVPUSH ONCE PRN PRN Reason: Nausea and Vomiting Hydromorphone HCl (Hydromorphone Hcl 1 Mg/Ml Syringe) 0.5 mg IVPUSH Q3H PRN; Protocol PRN Reason: Pain, Severe (Pain Scale 7-10) Last Admin: 03/27/24 08:40 Dose: 0.5 mg Documented By: DO Dextrose (D10) 250 mls @ 750 mls/hr IV Q15M PRN; Protocol PRN Reason: per Hypoglycemia Standing Ord. Piperacillin Sod/Tazobactam (Sod 4.5 gm/ Sodium Chloride) 100 mls @ 200 mls/hr IV Q6H [facility] Last Infusion: 03/28/24 04:16 Dose: Infused Documented By: DEL Insulin Glargine (Insulin Glargine,Hum.Rec.Anlog 100 Unit/Ml 10 Ml Vial) 9 unit SUBCUT BEDTIME [facility] Last Admin: 03/27/24 20:52 Dose: 9 unit Documented By: DEL Insulin Human Lispro (Insulin Lispro 100 Unit/Ml 3 Ml Vial) 0 unit SUBCUT QIDACHS [facility]; Protocol Last Admin: 03/27/24 20:41 Dose: Not Given Documented By: DEL Non-Admin Reason: No Insulin Coverage Lisinopril (Lisinopril 2.5 Mg Tablet) 2.5 mg PO DAILY [facility]; Protocol Last Admin: 03/27/24 07:58 Dose: 2.5 mg Documented By: DO Magnesium Hydroxide (Milk Of Magnesia 30 Ml Oral.Susp) 30 ml PO DAILY PRN PRN Reason: Constipation Ondansetron HCl (Ondansetron Hcl 4 Mg/2 Ml Vial) 4 mg IVPUSH Q8H PRN PRN Reason: Nausea and Vomiting Oxycodone HCl (Oxycodone Hcl Immed Release 5 Mg Tablet) 10 mg PO Q4H PRN PRN Reason: Pain, Moderate(Pain Scale 4-6) Last Admin: 03/28/24 07:11 Dose: 10 mg Documented By: AL Sodium Chloride (0.9 % Sodium Chloride Flush 3 Ml Syringe) 3 ml IVFLUSH QSHIFT [facility] Last Admin: 03/28/24 00:06 Dose: Not Given Documented By: DEL Non-Admin Reason: IV Running Temazepam (Temazepam 15 Mg Capsule) 15 mg PO BEDTIME PRN PRN Reason: Insomnia <Serina Lorenzo PA-C - Last Filed: 03/28/24 07:47> Labs CBC & Chem 7: 03/27/24 05:07 03/27/24 05:07 <Serina Lorenzo PA-C - Last Filed: 03/28/24 07:47> Labs: Laboratory Results - last 24 hr 03/27/24 03/27/24 03/27/24 11:08 16:11 20:12 POC Glucose 182 H 158 H 140 H <Serina Lorenzo PA-C - Last Filed: 03/28/24 07:47> Microbiology Microbiology Results: Microbiology 03/25/24 12:39 Blood Culture - Preliminary Blood - Venous No growth after 48 hours. 03/25/24 12:44 Blood Culture - Preliminary Blood - Venous No growth after 48 hours. 03/25/24 12:40 Urine Culture - Final Urine clean catch - Urine malcolm top Escherichia coli <Serina Lorenzo PA-C - Last Filed: 03/28/24 07:47> Procedures Date of Service Date of Service: 03/28/24 <Serina Lorenzo PA-C - Last Filed: 03/28/24 07:47> 03/28/24 <Lobito Ledezma MD - Last Filed: 03/28/24 08:41> Progress Note: A&P Assessment and plan (1) S/P cholecystectomy: Status: Acute <Serina Lorenzo PA-C - Last Filed: 03/28/24 07:47> Assessment and Plan: Feels well this morning Tolerating diet well Complaining of incisional pain Abdomen soft LORE drain serosanguineous Pain management Ambulate more Home when with good pain control on p.o. pain meds Seen and examined independently <Lobito Ledezma MD - Last Filed: 03/28/24 08:41> Assessment and Plan: POD #2 s/p Attempted laparoscopic cholecystectomy converted to open cholecystectomy via a subcostal incision for acute gangrenous cholecystitis. Continues to do well post op, good pain control. VSS. Abd benign with appropriate post op tenderness, incision clean, LORE nonbilious output. Encouraged use of oral analgesics for preparation for dc to home later today if tolerating solid diet and pain controlled on PO analgesics, will remove LORE drain prior. Patient comfortable with plan. <Serina Lorenzo PA-C - Last Filed: 03/28/24 07:47> Time Spent With Patient Time: Total time managing care of this patient today ____ minutes. <Serina Lorenzo PA-C - Last Filed: 03/28/24 07:47> Quality Stroke Does the patient have a stroke diagnosis?: No <Serina Lorenzo PA-C - Last Filed: 03/28/24 07:47> VTE Prior VTE?: No <Serina Lorenzo PA-C - Last Filed: 03/28/24 07:47> VTE Risk Level:: Surgical - low <Serina Lorenzo PA-C - Last Filed: 03/28/24 07:47> VTE Device Contraindication: Treatment Not Indicated <Serina Lorenzo PA-C - Last Filed: 03/28/24 07:47> VTE Drug Contraindication: Treatment Not Indicated <Serina Lorenzo PA-C - Last Filed: 03/28/24 07:47>
[2024-03-28 08:04] LABS: Glucose, Whole Blood 127 mg/dL (60-115)
--- NOTE | 2024-03-28 08:17 | HO.PM.IMPN ---
Subjective Subjective Date of Service: 03/28/24 Interval History: pod2, s/p ccy, doing well, has mild pain, eating regular food Physical Exam Vital Signs: Vital Signs: Last Vital Signs Temp 97.1 F 03/28/24 07:39 Pulse 75 03/28/24 07:39 Resp 16 03/28/24 07:39 BP 140/69 H 03/28/24 07:39 Pulse Ox 92 03/28/24 07:39 O2 Del Method Room Air 03/28/24 07:39 O2 Flow Rate 2 03/26/24 23:47 BMI result Body Mass Index 25.0 Const: Other: General: AO X 3, no acute distress Resp: CTA bilateral CVS: S1,S2,RRR GI: +BS, mild tenderness, no distention Skin: No rash Neuro: motor grossly intact Psych: appropriate affect Objective Data Active Medications Acetaminophen (Acetaminophen 325 Mg Tablet) 650 mg PO Q6H PRN PRN Reason: Pain, Mild (Pain Scale 1-3) Last Admin: 03/25/24 18:50 Dose: 650 mg Documented By: ERNESTO Al Hydroxide/Mg Hydroxide (Magnesium Hydrox/Alum Hydrox 30 Ml Oral.Susp) 30 ml PO Q4H PRN PRN Reason: Heartburn/Nausea Atorvastatin Calcium (Atorvastatin Calcium 40 Mg Tablet) 40 mg PO DAILY [facility] Last Admin: 03/27/24 07:58 Dose: 40 mg Documented By: DO Glucose (Glucose Gel 15 Gm Gel..Gram.) 15 gm PO Q15M PRN; Protocol PRN Reason: per Hypoglycemia Standing Ord. Haloperidol Lactate (Haloperidol Lactate 5 Mg/Ml Vial) 1 mg IVPUSH ONCE PRN PRN Reason: Nausea and Vomiting Hydromorphone HCl (Hydromorphone Hcl 1 Mg/Ml Syringe) 0.5 mg IVPUSH Q3H PRN; Protocol PRN Reason: Pain, Severe (Pain Scale 7-10) Last Admin: 03/27/24 08:40 Dose: 0.5 mg Documented By: DO Dextrose (D10) 250 mls @ 750 mls/hr IV Q15M PRN; Protocol PRN Reason: per Hypoglycemia Standing Ord. Piperacillin Sod/Tazobactam (Sod 4.5 gm/ Sodium Chloride) 100 mls @ 200 mls/hr IV Q6H [facility] Last Infusion: 03/28/24 04:16 Dose: Infused Documented By: DEL Insulin Glargine (Insulin Glargine,Hum.Rec.Anlog 100 Unit/Ml 10 Ml Vial) 9 unit SUBCUT BEDTIME [facility] Last Admin: 03/27/24 20:52 Dose: 9 unit Documented By: DEL Insulin Human Lispro (Insulin Lispro 100 Unit/Ml 3 Ml Vial) 0 unit SUBCUT QIDACHS [facility]; Protocol Last Admin: 03/28/24 08:15 Dose: Not Given Documented By: FERMIN Non-Admin Reason: No Insulin Coverage Lisinopril (Lisinopril 2.5 Mg Tablet) 2.5 mg PO DAILY [facility]; Protocol Last Admin: 03/27/24 07:58 Dose: 2.5 mg Documented By: DO Magnesium Hydroxide (Milk Of Magnesia 30 Ml Oral.Susp) 30 ml PO DAILY PRN PRN Reason: Constipation Ondansetron HCl (Ondansetron Hcl 4 Mg/2 Ml Vial) 4 mg IVPUSH Q8H PRN PRN Reason: Nausea and Vomiting Oxycodone HCl (Oxycodone Hcl Immed Release 5 Mg Tablet) 10 mg PO Q4H PRN PRN Reason: Pain, Moderate(Pain Scale 4-6) Last Admin: 03/28/24 07:11 Dose: 10 mg Documented By: AL Sodium Chloride (0.9 % Sodium Chloride Flush 3 Ml Syringe) 3 ml IVFLUSH QSHIFT [facility] Last Admin: 03/28/24 00:06 Dose: Not Given Documented By: DEL Non-Admin Reason: IV Running Temazepam (Temazepam 15 Mg Capsule) 15 mg PO BEDTIME PRN PRN Reason: Insomnia Labs 03/27/24 05:07 03/27/24 05:07 Labs: Laboratory Results - last 24 hr 03/27/24 03/27/24 03/27/24 11:08 16:11 20:12 POC Glucose 182 H 158 H 140 H 03/28/24 07:42 POC Glucose 127 H Microbiology Microbiology Results: Microbiology 03/25/24 12:39 Blood Culture - Preliminary Blood - Venous No growth after 48 hours. 03/25/24 12:44 Blood Culture - Preliminary Blood - Venous No growth after 48 hours. 03/25/24 12:40 Urine Culture - Final Urine clean catch - Urine malcolm top Escherichia coli Assessment and Plan (1) S/P cholecystectomy: Status: Acute (2) Hypertension: Status: Acute (3) Diabetes mellitus: Status: Acute (4) UTI (urinary tract infection): Status: Acute (5) Cholecystitis: Status: Acute Plan 64/F with DM, HTN w/ acute cholecystitis s/p surgery Insulin-dependent diabetes mellitus with hyperglycemia on presentation. sugars are now controlled. -to resume home regimen upon this discharge.. She knows to make adjustment in insulin based on sugar level Acute cholecystitis with sepsis, improved, wbc down, s/p CCY, continue Abx (Zosyn), consider Augmentin at dc E coli UTI-Abx as above Acute lactic acidosis due to sepsis--resolved Hypertension: continue lisinopril upon discharge may resume home meds. Signing off, and follow on PRN Quality Stroke Does the patient have a stroke diagnosis?: No VTE Prior VTE?: No VTE Risk Level:: Surgical - low VTE Device Contraindication: Treatment Not Indicated VTE Drug Contraindication: Treatment Not Indicated
[2024-03-28] MEDS: lisinopriL 2.5 MG TABLET PO (08:42)
[2024-03-28] MEDS: Atorvastatin Calcium 40 MG TABLET PO (08:42)
[2024-03-28] MEDS: 0.9 % Sodium Chloride Flush 3 ML SYRINGE IVFLUSH ×3 (08:48→20:21)
[2024-03-28 11:39] LABS: Glucose, Whole Blood 149 mg/dL (60-115)
[2024-03-28] MEDS: Acetaminophen 325 MG TABLET 650 MG PO (12:03)
--- NOTE | 2024-03-28 14:36 | MHC.CM.PN ---
EMR reviewed. Patient not medically cleared for dc at this time. CM will continue to follow.
[2024-03-28 16:15] LABS: Glucose, Whole Blood 132 mg/dL (60-115)
[2024-03-28 19:57] LABS: Glucose, Whole Blood 149 mg/dL (60-115)
[2024-03-28] MEDS: Insulin Glargine,Hum.rec.anlog 100 UNIT/ML 10 ML VIAL 9 UNIT SUBCUT (20:24)
[2024-03-29] MEDS: Piperacillin Sodium/Tazobactam 4.5 GM in 0.9 % Sodium Chloride 100 ML IV (02:21)
[2024-03-29 03:27] VITALS: BP 125/66; PULSE 79; RESP 16; TEMP 36; O2SAT 94
[2024-03-29 07:08] VITALS: BP 124/66; PULSE 72; RESP 16; TEMP 36.1; O2SAT 95
[2024-03-29 07:19] LABS: Glucose, Whole Blood 109 mg/dL (60-115)
--- NOTE | 2024-03-29 07:54 | P.PNGS_ITS ---
Subjective Subjective Date of Service: 03/29/24 <Serina Lorenzo PA-C - Last Filed: 03/29/24 07:57> 03/29/24 <Lobito Ledezma MD - Last Filed: 03/29/24 08:09> Interval history: Sore but feels ok- managed with mostly tylenol yesterday. Tolerating solid diet. OOB and ambulating. Would like to go home. <Serina Lorenzo PA-C - Last Filed: 03/29/24 07:57> Physical Exam 2 Vital Signs: Vital Signs: Last Vital Signs Temp 96.9 F 03/29/24 07:08 Pulse 72 03/29/24 07:08 Resp 16 03/29/24 07:08 BP 124/66 03/29/24 07:08 Pulse Ox 95 03/29/24 07:08 O2 Del Method Room Air 03/29/24 07:08 O2 Flow Rate 2 03/26/24 23:47 BMI result Body Mass Index 25.0 <Serina Lorenzo PA-C - Last Filed: 03/29/24 07:57> Const: General: comfortable, no acute distress and alert <Serina Lorenzo PA-C - Last Filed: 03/29/24 07:57> Orientation/consciousness: patient oriented x3 <SHEYLA Benjamin Last Filed: 03/29/24 07:57> Resp: Effort & Inspection: normal respiratory effort <Serina Lorenzo PA-C - Last Filed: 03/29/24 07:57> GI: Inspection: No distended and Yes incision (clean) <Serina Lorenzo PA-C - Last Filed: 03/29/24 07:57> Palpation (GI): Soft to palpation and Tenderness to palpation present (GI) (mild incisional ) <SHEYLA Benjamin Last Filed: 03/29/24 07:57> Skin: General skin exam: no rashes or lesions noted and no jaundice < SHEYLA Benjamin Last Filed: 03/29/24 07:57> Neuro: General: patient oriented x3 <SHEYLA Benjamin Last Filed: 03/29/24 07:57> Objective Data Active Medications Acetaminophen (Acetaminophen 325 Mg Tablet) 650 mg PO Q6H PRN PRN Reason: Pain, Mild (Pain Scale 1-3) Last Admin: 03/28/24 12:03 Dose: 650 mg Documented By: FERMIN Al Hydroxide/Mg Hydroxide (Magnesium Hydrox/Alum Hydrox 30 Ml Oral.Susp) 30 ml PO Q4H PRN PRN Reason: Heartburn/Nausea Atorvastatin Calcium (Atorvastatin Calcium 40 Mg Tablet) 40 mg PO DAILY [facility] Last Admin: 03/28/24 08:42 Dose: 40 mg Documented By: FERMIN Glucose (Glucose Gel 15 Gm Gel..Gram.) 15 gm PO Q15M PRN; Protocol PRN Reason: per Hypoglycemia Standing Ord. Haloperidol Lactate (Haloperidol Lactate 5 Mg/Ml Vial) 1 mg IVPUSH ONCE PRN PRN Reason: Nausea and Vomiting Hydromorphone HCl (Hydromorphone Hcl 1 Mg/Ml Syringe) 0.5 mg IVPUSH Q3H PRN; Protocol PRN Reason: Pain, Severe (Pain Scale 7-10) Last Admin: 03/27/24 08:40 Dose: 0.5 mg Documented By: DO Dextrose (D10) 250 mls @ 750 mls/hr IV Q15M PRN; Protocol PRN Reason: per Hypoglycemia Standing Ord. Piperacillin Sod/Tazobactam (Sod 4.5 gm/ Sodium Chloride) 100 mls @ 200 mls/hr IV Q6H [facility] Last Infusion: 03/29/24 02:57 Dose: Infused Documented By: AMY Insulin Glargine (Insulin Glargine,Hum.Rec.Anlog 100 Unit/Ml 10 Ml Vial) 9 unit SUBCUT BEDTIME [facility] Last Admin: 03/28/24 20:24 Dose: 9 unit Documented By: AMY Insulin Human Lispro (Insulin Lispro 100 Unit/Ml 3 Ml Vial) 0 unit SUBCUT QIDACHS [facility]; Protocol Last Admin: 03/29/24 07:22 Dose: Not Given Documented By: JOAQUÍN Non-Admin Reason: No Insulin Coverage Lisinopril (Lisinopril 2.5 Mg Tablet) 2.5 mg PO DAILY [facility]; Protocol Last Admin: 03/28/24 08:42 Dose: 2.5 mg Documented By: FERMIN Magnesium Hydroxide (Milk Of Magnesia 30 Ml Oral.Susp) 30 ml PO DAILY PRN PRN Reason: Constipation Ondansetron HCl (Ondansetron Hcl 4 Mg/2 Ml Vial) 4 mg IVPUSH Q8H PRN PRN Reason: Nausea and Vomiting Oxycodone HCl (Oxycodone Hcl Immed Release 5 Mg Tablet) 10 mg PO Q4H PRN PRN Reason: Pain, Moderate(Pain Scale 4-6) Last Admin: 03/28/24 20:32 Dose: 10 mg Documented By: AMY Sodium Chloride (0.9 % Sodium Chloride Flush 3 Ml Syringe) 3 ml IVFLUSH QSHIFT [facility] Last Admin: 03/28/24 20:21 Dose: 3 ml Documented By: AMY Temazepam (Temazepam 15 Mg Capsule) 15 mg PO BEDTIME PRN PRN Reason: Insomnia <Serina Lorenzo PA-C - Last Filed: 03/29/24 07:57> Labs CBC & Chem 7: 03/27/24 05:07 03/27/24 05:07 <Serina Lorenzo PA-C - Last Filed: 03/29/24 07:57> Labs: Laboratory Results - last 24 hr 03/28/24 03/28/24 03/28/24 07:42 11:35 16:10 POC Glucose 127 H 149 H 132 H 03/28/24 03/29/24 19:53 07:05 POC Glucose 149 H 109 <Serina Lorenzo PA-C - Last Filed: 03/29/24 07:57> Procedures Date of Service Date of Service: 03/29/24 <Serina Lorenzo PA-C - Last Filed: 03/29/24 07:57> 03/29/24 <Lobito Ledezma MD - Last Filed: 03/29/24 08:09> Progress Note: A&P Assessment and plan (1) S/P cholecystectomy: Status: Acute <Serina Lorenzo PA-C - Last Filed: 03/29/24 07:57> Assessment and Plan: Feels well Good pain control Tolerating regular diet Abdomen soft and benign Clinically looks well A to DC home LORE drain removed Follow up instructions explained We will see in the office Seen and examined independently <Lobito Ledezma MD - Last Filed: 03/29/24 08:09> Assessment and Plan: POD #3 s/p Attempted laparoscopic cholecystectomy converted to open cholecystectomy via a subcostal incision for acute gangrenous cholecystitis. Doing well post op with good pain control, tolerating solid diet. VSS. Abd exam benign with clean incision, LORE serosang output and removed. She feels ready for discharge to home. Dc to home today. F/u in office in 2 weeks. Patient comfortable with plan. <Serina Lorenzo PA-C - Last Filed: 03/29/24 07:57> Time Spent With Patient Time: Total time managing care of this patient today ____ minutes. <Serina Lorenzo PA-C - Last Filed: 03/29/24 07:57> Quality Stroke Does the patient have a stroke diagnosis?: No <Serina Lorenzo PA-C - Last Filed: 03/29/24 07:57> VTE Prior VTE?: No <Serina Lorenzo PA-C - Last Filed: 03/29/24 07:57> VTE Risk Level:: Surgical - low <Serina Lorenzo PA-C - Last Filed: 03/29/24 07:57> VTE Device Contraindication: Treatment Not Indicated <Serina Lorenzo PA-C - Last Filed: 03/29/24 07:57> VTE Drug Contraindication: Treatment Not Indicated <Serina Lorenzo PA-C - Last Filed: 03/29/24 07:57>
[2024-03-29] MEDS: lisinopriL 2.5 MG TABLET PO (08:27)
[2024-03-29] MEDS: Atorvastatin Calcium 40 MG TABLET PO (08:27)
--- NOTE | 2024-03-29 08:39 | MHC.CM.PN ---
EMR reviewed. Patient medically cleared for dc home self care. Patient's will provide transport home.
--- NOTE | 2024-03-29 11:20 | P.DS_ITS ---
DS: Providers Provider Date of Service: 03/29/24 Date of admission: 03/25/24 15:57 Primary care physician: Unknown Physician Attending physician on admission: Chung Harrison Consults: 03/26/24 05:29 Consult to Hospitalist Stat Comment: Consulting Provider: Hospitalist Reason For Exam: DM mgt, For lap GB today Attending physician on discharge: Lobito Ledezma DS: Diagnosis Discharge Diagnosis (1) S/P cholecystectomy: Status: Acute DS: Summary Hospital Course Hospital Course: HPI AT ADMISSION: Kiarra Aldana is a 64 year old female here in the ER yesterday afternoon by Dr. Harrison because of abdominal pain. She describes this mostly in the right upper side of the abdomen radiating to the back. She states that she had a colonoscopy last Tuesday morning in the hospital. She says she did well afterwards but later that night, she started to have this right upper quadrant pain. This persisted on Tuesday and she eventually came to the ER yesterday. She also describes some nausea and vomiting. She denies any diarrhea. She says that currently, her pain is in right upper quadrant all the way to the side and back. Her CT scan yesterday showed findings suggestive of acute cholecystitis with a distended gallbladder and thickened wall. Her initial lactate was 2.4 but this went down to normal after hydration. HOSPITAL COURSE: It was recommended to proceed with lap cholecystectomy, possible open. She agreed. She was added onto the OR schedule for that day. On 03/26/24, attempted laparoscopic cholecystectomy converted to open chol ecystectomy via a subcostal incision was performed by Dr. Ledezma without complication and was found to have acute gangrenous cholecystitis. She tolerated the procedure well and had an uncomplicated recovery course. She remained inpatient for 3 days for post op pain while convalescing. On the day of discharge, she was tolerating a solid diet without nausea and vomiting and had good pain control on PO analgesics. She was ambulating without difficulty. her abdomen was benign with clean incision and scant serosanguineous LORE drain output which was removed. She was discharged on 03/29/24 in stable condition. She is to follow up in the office in 2 weeks. Status at Discharge Functional status at discharge: independent ambulation Overall status at discharge: patient is progressing back to baseline Time Attestation Discharge Coordination Time (in mins): 35 Quality: Safe Use of Opioids Does Pt have an Active Cancer Diagnosis on the Problem List?: No Quality: Stroke Does the patient have a stroke diagnosis?: No Physical Exam Vital Signs: Vital Signs: Last Vital Signs Temp 96.9 F 03/29/24 07:08 Pulse 72 03/29/24 07:08 Resp 16 03/29/24 07:08 BP 124/66 03/29/24 07:08 Pulse Ox 95 03/29/24 07:08 O2 Del Method Room Air 03/29/24 07:08 O2 Flow Rate 2 03/26/24 23:47 BMI result Body Mass Index 25.0 Const: General: comfortable, no acute distress and alert Resp: Effort & Inspection: normal respiratory effort GI: Other: incision clean, LORE drain serosang output and removed Palpation (GI): Soft to palpation, Tenderness to palpation present (GI) (mild incisional) and no guarding Skin: General skin exam: no rashes or lesions noted and no jaundice DS: Data Data Completed and Pending Completed studies during hospitalization [Text1]: Pending at discharge 03/26/24 13:09 Surgical [PTH] Routine Labs on day of discharge: Laboratory Results - last 24 hr 03/28/24 03/28/24 03/28/24 11:35 16:10 19:53 POC Glucose 149 H 132 H 149 H 03/29/24 07:05 POC Glucose 109 Preliminary micro results at discharge 03/25/24 12:39 Blood Culture - Preliminary Blood - Venous No growth after 48 hours. 03/25/24 12:44 Blood Culture - Preliminary Blood - Venous No growth after 48 hours. Discharge Plan Discharge Anticipated Discharge Date/Time: 03/27/24 15:46 Patient Disposition: Home, Self-Care Discharge Diagnosis: acute cholecystitis, s/p cholecystectomy Referrals: Lobito Ledezma MD [Physician] - 2 Weeks Physician,Unknown J [Primary Care Provider] - 1 Week Discharge Medications: New docusate sodium [Colace] 100 mg capsule 100 mg PO BID Qty: 30 0RF oxycodone 5 mg tablet 5 mg PO Q4H PRN (Reason: pain (scale score 7-10)) Qty: 24 0RF Rx Instructions: Partial Fill upon patient request. Continued atorvastatin 40 mg tablet 40 mg PO DAILY metformin 1,000 mg tablet 1,000 mg PO BID lisinopril 2.5 mg tablet 2.5 mg PO DAILY insulin glargine [Lantus Solostar U-100 Insulin] 100 unit/mL (3 mL) insulin pen 18 unit subcut DAILY@1999 Discharge Orders: Discharge Order (Routine); Ordered 03/29/24 Ordered By: Serina Lorenzo Diet: Diabetic diet Activity on Discharge: No heavy lifting Print Language: [place] Activity Restrictions/Additional Instructions: If the incision area is tender, you may apply an ice pack for short intervals (No more than 20 minutes on, followed by at least 20 minutes off). Do not apply heat. Do not use creams, lotions, or topical antibiotics. These can cause infection or allergic reaction. Ok to shower. You have reece closing your incision and these will be removed approximately 10-14 days after surgery. NO HEAVY LIFTING (>10lbs) or strenuous activity. Follow up in office. ([phone]) Call Your Doctor If: -Your temperature exceeds 101.5? F -You experience excessive pain or swelling -You have an unexpected reaction to medication -You have excessive bleeding -You experience continued vomiting/nausea -Your incision begins to separate -Your incision shows signs of infection such as increased redness, swelling, excessive pain, drainage (light blood or clear fluid is normal) or heat Care Plan Goals: Return to baseline health and resume normal activities following recovery period. Health Concerns: acute cholecystitis, gangrenous diabetes mellitus Plan of Treatment: s/p lap attempted converted to open cholecystectomy antibiotics Assessment: Doing well post op. Discharge Date/Time: 03/29/24 09:56
== END 2024-03-29 09:56 | disposition home or self-care (01) | DRG 710 ==
LOC: HO.ED 15:49 → HO.SSS 15:55 → HO.EDOVER 15:57 → HO.S3 23:35
PROVIDERS: Internal Medicine; Physician Assistant; Surgery; Absent Provider Surgery; Admitting Provider Surgery; Emergency Provider Student in an Organized Health Care Education/Training Program; PCP Student in an Organized Health Care Education/Training Program; Visit Provider Surgery
PROC: 0FT44ZZ Resection of Gallbladder, Percutaneous Endoscopic Approach (ICD-10-PCS; CPT 47562; principal; 2024-03-26 12:00)
DX: A41.9 Sepsis, unspecified organism (principal); K82.A1 Gangrene of gallbladder in cholecystitis; E87.21 Acute metabolic acidosis; K81.0 Acute cholecystitis; N39.0 Urinary tract infection, site not specified; E11.65 Type 2 diabetes mellitus with hyperglycemia; B96.20 Unspecified Escherichia coli [E. coli] as the cause of diseases classified elsewhere; I10 Essential (primary) hypertension; Z79.4 Long term (current) use of insulin; Z79.85 Long-term (current) use of injectable non-insulin antidiabetic drugs; Z79.899 Other long term (current) drug therapy
CPT/HCPCS: 36415; 74177; 80048; 80053; 81001; 82947; 83605; 83690; 85025; 85027; 85610; 86850; 86900; 86901; 87040; 87086; 87088; 87186; 88304; 92950; 93005; 99285; J0131; J0330; J0696; J1100; J1170; J1885; J2270; J2371; J2405; J2543; J2704; J2795; J3010; J7120; Q9967

== ENCOUNTER → 2024-03-25 11:03 | Outpatient (BNV) | payer BC, SELFPAY | PROVIDERS: Absent Provider Surgery; Admitting Provider Surgery; Emergency Provider Student in an Organized Health Care Education/Training Program; Visit Provider Internal Medicine Cardiovascular Disease | DX: R94.31 Abnormal electrocardiogram [ECG] [EKG] (principal) | CPT/HCPCS: 93010 ==

== ENCOUNTER → 2024-03-25 15:57 | Outpatient (BNV) | payer BC, SELFPAY | PROVIDERS: Absent Provider Surgery; Admitting Provider Surgery; Emergency Provider Student in an Organized Health Care Education/Training Program; Visit Provider Internal Medicine | DX: Z90.49 Acquired absence of other specified parts of digestive tract (principal); I10 Essential (primary) hypertension; E11.9 Type 2 diabetes mellitus without complications; N39.0 Urinary tract infection, site not specified; K81.9 Cholecystitis, unspecified | CPT/HCPCS: 99232 ==

== ENCOUNTER → 2024-03-25 15:57 | Outpatient (BNV) | payer BC, SELFPAY | PROVIDERS: Absent Provider Surgery; Admitting Provider Surgery; Emergency Provider Student in an Organized Health Care Education/Training Program; Visit Provider Surgery | DX: Z90.49 Acquired absence of other specified parts of digestive tract (principal); K81.9 Cholecystitis, unspecified | CPT/HCPCS: 47600; 99024; 99222; 99499 ==

== ENCOUNTER 2024-04-19 10:26 | Outpatient (AMB) | payer BC, SELFPAY ==
--- NOTE | 2024-04-19 10:27 | MHC.OFFVIS ---
Vital Signs 04/19/24 10:36 Weight 132 lb Intake Visit Reasons: s/p cholecystectomy Intake Note: This patient presents for a post-op assessment status post open cholecystectomy. Patient c/o; reports irritation on the area. Surgery date: 03/26/2024 Equipment Oiler Required: No Accompanied by: Other Relationship Allergies No Known Allergies Allergy (Verified 04/19/24 10:35) HPI HPI s/p cholecystectomy: Details: 64-year-old female here for postop visit. She underwent open cholecystectomy for gangrenous cholecystitis last 03/26/2024. She tolerated the procedure well and she was discharged on postop day 3. She feels well overall. She denies any significant complaints. She has good oral intake. [facility] Medical History (Updated 04/06/24 @ 00:02 by Paz Meyer) Hypertension Diabetes mellitus Surgical History (Updated 04/19/24 @ 10:37 by ELLIOT Jesus) History of cholecystectomy (~03/26/24) Social History Household Members: Spouse Housing: House Do you presently have visiting nurse or other home services: No Comment: COUNTS CORRECT Patient Tobacco Use Status: Never used Tobacco service: No Physical Exam Const General: comfortable and no acute distress Resp Effort & Inspection: normal respiratory effort Cardio Rate: regular rate GI Other: All incisions are well healed, reece in place Palpation (GI): Soft to palpation, not firm, nontender and no guarding Assessment & Plan Assessment & Plan (1) S/P cholecystectomy: Code(s): Z90.49 - Acquired absence of other specified parts of digestive tract Category: Surgical Plan: She is doing very well postoperatively. All incisions are well healed. I removed her skin reece She is good oral intake I advised her to avoid lifting anything more than 20 lb for at least 2 more weeks. She can follow up on a p.r.n. basis. Coding Level of Care Code Global (97533) Diagnoses S/P cholecystectomy Z90.49
== END 2024-04-19 10:54 | disposition home or self-care (01) ==
PROVIDERS: PCP Student in an Organized Health Care Education/Training Program; Visit Provider Surgery
DX: Z90.49 Acquired absence of other specified parts of digestive tract (principal)
CPT/HCPCS: 99024

== ENCOUNTER → 2024-04-19 10:26 | Outpatient (BNVA) | payer BC, SELFPAY | PROVIDERS: PCP Student in an Organized Health Care Education/Training Program; Visit Provider Surgery ==